=== PATIENT | male | born 1985 | race Caucasian/White ===

== ENCOUNTER 2017-10-06 08:31 | Emergency (ER) | payer OTHER ==
[2017-10-06 08:41] VITALS: RESP 18
[2017-10-06] MEDS ORDERED: METOCLOPRAMIDE 5 MG/ML 2 ML VIAL IVP STA (09:01)
[2017-10-06] MEDS ORDERED: SODIUM CHLORIDE 0.9% 500 ML IV STA (09:01)
[2017-10-06] MEDS ORDERED: KETOROLAC 30 MG/ML 1 ML VIAL IVP STA (09:01)
--- NOTE | 2017-10-06 09:03 | ED ---
General Adult HPI - General Chief complaint: Abdominal Pain Stated complaint: Blood in urine Time Seen by Provider: 10/06/17 08:50 Source: patient, RN notes reviewed Mode of arrival: ambulatory Limitations: no limitations - History of Present Illness Initial comments: Patient is a pleasant 32-year-old male presenting to the emergency Department with right lower back discomfort. Symptoms have been waxing and waning over the past couple of days. Discomfort is severe at times. Discomfort is currently 8/10. Patient has had some hematuria. Patient has had some episodes of nausea. No vomiting. No fevers. Symptoms are similar to previous kidney stone. Symptoms are not positional. - Related Data Previous Rx's Medication Instructions Recorded Hydrocodone/Acetaminophen [[place] 1 each PO Q4HR PRN #15 tab 10/06/17 5-325] Ketorolac [Toradol] 10 mg PO Q6HR PRN #15 tab 10/06/17 Metoclopramide HCl [Reglan] 10 mg PO Q6HR PRN #15 tablet 10/06/17 Tamsulosin [Flomax] 0.4 mg PO DAILY #14 cap 10/06/17 Allergies Allergy/AdvReac Type Severity Reaction Status Date / Time No Known Allergies Allergy Verified 10/06/17 08:58 Review of Systems ROS Statement: Those systems with pertinent positive or pertinent negative responses have been documented in the HPI. ROS Other: All systems not noted in ROS Statement are negative. Constitutional: Denies: fever Eyes: Denies: eye pain ENT: Denies: ear pain Respiratory: Denies: cough Cardiovascular: Denies: chest pain Endocrine: Denies: fatigue Gastrointestinal: Reports: nausea. Denies: abdominal pain, vomiting Genitourinary: Reports: hematuria Musculoskeletal: Reports: back pain Skin: Denies: rash Neurological: Denies: weakness Past Medical History Past Medical History: No Reported History Additional Past Medical History / Comment(s): kidney stone History of Any Multi-Drug Resistant Organisms: None Reported Past Surgical History: No Surgical Hx Reported Additional Past Surgical History / Comment(s): right hand ORIF Past Psychological History: No Psychological Hx Reported Smoking Status: Current every day smoker Past Alcohol Use History: None Reported Past Drug Use History: None Reported General Exam Limitations: no limitations General appearance: alert, in no apparent distress Head exam: Present: atraumatic Eye exam: Present: normal appearance, PERRL ENT exam: Present: normal oropharynx Neck exam: Present: normal inspection Respiratory exam: Present: normal lung sounds bilaterally Cardiovascular Exam: Present: regular rate, normal rhythm Expanded Peripheral pulses: 2+: Posterior Tibialis (R), Posterior Tibialis (L) GI/Abdominal exam: Present: soft. Absent: distended, tenderness, pulsatile mass Extremities exam: Present: normal inspection Back exam: Present: normal inspection. Absent: tenderness, CVA tenderness (R) Neurological exam: Present: alert Psychiatric exam: Present: normal affect, normal mood Skin exam: Present: normal color Course Vital Signs 10/06/17 08:39 Temperature 97.5 F L Pulse Rate 83 Respiratory 18 Rate Blood Pressure 140/73 O2 Sat by Pulse 100 Oximetry Medical Decision Making - Medical Decision Making Patient reexamined and improved. Patient states discomfort is tolerable at this time and would like to be discharged. Patient has probable kidney stone based on symptoms and history and hematuria. Patient updated on results. - Lab Data Result diagrams: 10/06/17 08:50 10/06/17 08:50 Lab Results 10/06/17 10/06/17 10/06/17 Range/Units 08:50 08:50 08:50 WBC 9.2 (3.8-10.6) k/uL RBC 5.47 (4.30-5.90) m/uL Hgb 16.3 (13.0-17.5) gm/dL Hct 51.7 (39.0-53.0) % MCV 94.6 (80.0-100.0) fL MCH 29.8 (25.0-35.0) pg MCHC 31.5 (31.0-37.0) g/dL RDW 14.7 (11.5-15.5) % Plt Count 272 (150-450) k/uL Neutrophils % 72 % Lymphocytes % 22 % Monocytes % 3 % Eosinophils % 1 % Basophils % 0 % Neutrophils # 6.6 (1.3-7.7) k/uL Lymphocytes # 2.1 (1.0-4.8) k/uL Monocytes # 0.3 (0-1.0) k/uL Eosinophils # 0.1 (0-0.7) k/uL Basophils # 0.0 (0-0.2) k/uL Sodium 140 (137-145) mmol/L Potassium 4.3 (3.5-5.1) mmol/L Chloride 104 (98-107) mmol/L Carbon Dioxide 28 (22-30) mmol/L Anion Gap 8 mmol/L BUN 9 (9-20) mg/dL Creatinine 0.97 (0.66-1.25) mg/dL Est GFR (MDRD) Af Amer >60 (>60 ml/min/1.73 sqM) Est GFR (MDRD) Non-Af >60 (>60 ml/min/1.73 sqM) Glucose 141 H (74-99) mg/dL Calcium 9.5 (8.4-10.2) mg/dL Total Bilirubin 0.7 (0.2-1.3) mg/dL AST 31 (17-59) U/L ALT 44 (21-72) U/L Alkaline Phosphatase 51 (38-126) U/L Total Protein 6.1 L (6.3-8.2) g/dL Albumin 4.0 (3.5-5.0) g/dL Amylase 53 (30-110) U/L Lipase 32 (23-300) U/L Urine Color Light Brown Urine Appearance Cloudy (Clear) Urine pH 8.0 (5.0-8.0) Ur Specific [place] 1.014 (1.001-1.035) Urine Protein Trace H (Negative) Urine Glucose (UA) Negative (Negative) Urine Ketones Negative (Negative) Urine Blood Large H (Negative) Urine Nitrite Negative (Negative) Urine Bilirubin Negative (Negative) Urine Urobilinogen <2.0 (<2.0) mg/dL Ur Leukocyte Esterase Negative (Negative) Urine RBC >182 H (0-5) /hpf Ur Squamous Epith Cells 1 (0-4) /hpf - Radiology Data Radiology results: image reviewed (Abdominal x-ray reveals no acute process) Disposition Clinical Impression: Ureterolithiasis Disposition: HOME SELF-CARE Condition: Stable Instructions: Kidney Stones (ED) Additional Instructions: Please follow-up with primary care physician in the next day or 2 for recheck. Return for fever, uncontrolled vomiting, uncontrolled pain, worsening or changing symptoms or other concerns. Prescriptions: Hydrocodone/Acetaminophen [[place] 5-325] 1 each PO Q4HR PRN #15 tab PRN Reason: Pain Ketorolac [Toradol] 10 mg PO Q6HR PRN #15 tab PRN Reason: Pain Metoclopramide HCl [Reglan] 10 mg PO Q6HR PRN #15 tablet PRN Reason: Nausea Tamsulosin [Flomax] 0.4 mg PO DAILY #14 cap Referrals: Robyn Dorsey MD [STAFF PHYSICIAN] - 1-2 days Hema Menjivar MD [STAFF PHYSICIAN] - 1-2 days Time of Disposition: 10:12
[2017-10-06 09:20] LABS: Basophils % (A) 0 %; Eosinophils # (A) 0.1 k/uL (0-0.7); Eosinophils % (A) 1 %; HCT 51.7 % (39.0-53.0); HGB 16.3 gm/dL (13.0-17.5); Lymphocytes # (A) 2.1 k/uL (1.0-4.8); Lymphocytes % (A) 22 %; MCH 29.8 pg (25.0-35.0); MCHC 31.5 g/dL (31.0-37.0); MCV 94.6 fL (80.0-100.0); Mean Platelet Volume 7.3; Monocytes # (A) 0.3 k/uL (0-1.0); Monocytes % (A) 3 %; Neutrophils # (A) 6.6 k/uL (1.3-7.7); Neutrophils % (A) 72 %; Platelet Count 272 k/uL (150-450); RBC 5.47 m/uL (4.30-5.90); RDW 14.7 % (11.5-15.5); WBC 9.2 k/uL (3.8-10.6)
[2017-10-06 09:25] LABS: ALT 44 U/L (21-72); AST 31 U/L (17-59); Alkaline Phosphatase 51 U/L (38-126); Amylase 53 U/L (30-110); Anion Gap 8 mmol/L; Blood Urea Nitrogen 9 mg/dL (9-20); Calcium 9.5 mg/dL (8.4-10.2); Carbon Dioxide 28 mmol/L (22-30); Chloride 104 mmol/L (98-107); Glucose 141 mg/dL (74-99); Lipase 32 U/L (23-300); Potassium 4.3 mmol/L (3.5-5.1); Sodium 140 mmol/L (137-145); Total Bilirubin 0.7 mg/dL (0.2-1.3); Total Protein 6.1 g/dL (6.3-8.2)
[2017-10-06 09:26] LABS: Appearance,Urine Cloudy (Clear); Bilirubin,Urine Negative (Negative); Blood,Urine Large (Negative); Color,Urine Light Brown; Glucose,Urine (UA) Negative (Negative); Ketones,Urine Negative (Negative); Leukocyte Esterase,Urine Negative (Negative); Nitrite,Urine Negative (Negative); Protein,Urine Trace (Negative); RBC,Urine >182 /hpf (0-5); Specific Gravity,Urine 1.014 (1.001-1.035); Squamous Epithelial Cell,Urine 1 /hpf (0-4); Urobilinogen,Urine <2.0 mg/dL (<2.0)
--- NOTE | 2017-10-06 09:31 | XR ---
EXAMINATION TYPE: XR KUB , 2 VIEWS DATE OF EXAM ORDERED: 10/06/2017 HISTORY: abdominal pain. COMPARISON: None. FINDINGS: The lung bases are clear. Within the abdomen, the abdominal gas pattern is normal. There is no evidence of obstruction or free air. No unusual calcifications are seen. IMPRESSION: NORMAL ABDOMEN.
[2017-10-06 10:33] VITALS: BP 121/65; PULSE 84; TEMP 97.9
== END 2017-10-06 10:31 | disposition home or self-care (01) ==
LOC: EC 08:31
DX: N20.1 Calculus of ureter (principal); F17.200 Nicotine dependence, unspecified, uncomplicated; Z87.442 Personal history of urinary calculi
CPT/HCPCS: 36415; 80053; 82150; 83690; 85025; 81001; 74018; 99284; 96374; 96375; 96361; J2765; J1885

== ENCOUNTER 2017-11-25 10:20 | Emergency (ER) | payer OTHER ==
[2017-11-25] MEDS ORDERED: MORPHINE SULFATE 4 MG/ML SYRINGE IM STA (11:27)
[2017-11-25] MEDS ORDERED: ONDANSETRON ODT 4 MG TAB PO STA (11:27)
[2017-11-25] MEDS ORDERED: KETOROLAC 60 MG/2 ML VIAL IM STA (11:27)
[2017-11-25] MEDS ORDERED: MORPHINE SULFATE/PF 10MG/10ML VL IM STA (11:34)
--- NOTE | 2017-11-25 11:37 | ED ---
General Adult HPI - General Chief complaint: Abdominal Pain Stated complaint: Blood in urine Time Seen by Provider: 11/25/17 11:19 Source: patient, RN notes reviewed Mode of arrival: ambulatory Limitations: no limitations - History of Present Illness Initial comments: Patient 32-year-old male with significant past medical history for kidney stones , presenting today with a chief complaint of right-sided flank pain over the last 3 days. He does admit that he seen blood in his urine. Does admit to pain wrapping around to the right side of the abdomen. He states is consistent with kidney stones that is had in the past. He does admit to some nausea no vomiting. Denies any other complaints or symptoms at this time. Patient denies any recent fever, chills, shortness of breath, chest pain, numbness or tingling , dysuria or hematuria, constipation or diarrhea, headaches or visual changes, or any other complaints. - Related Data Home Medications Medication Instructions Recorded Confirmed Ibuprofen [Motrin] 800 mg PO ONCE PRN 11/25/17 11/25/17 Previous Rx's Medication Instructions Recorded Hydrocodone/Acetaminophen [[place] 1 each PO Q6HR PRN #12 tab 11/25/17 5-325] Ibuprofen [Motrin] 600 mg PO Q6HR PRN #40 day 11/25/17 Tamsulosin [Flomax] 0.4 mg PO DAILY #10 cap 11/25/17 Allergies Allergy/AdvReac Type Severity Reaction Status Date / Time No Known Allergies Allergy Verified 11/25/17 11:27 Review of Systems ROS Statement: Those systems with pertinent positive or pertinent negative responses have been documented in the HPI. ROS Other: All systems not noted in ROS Statement are negative. Past Medical History Past Medical History: No Reported History Additional Past Medical History / Comment(s): kidney stone History of Any Multi-Drug Resistant Organisms: None Reported Past Surgical History: No Surgical Hx Reported Additional Past Surgical History / Comment(s): right hand ORIF Past Psychological History: No Psychological Hx Reported Smoking Status: Current every day smoker Past Alcohol Use History: None Reported Past Drug Use History: None Reported General Exam - General Exam Comments Initial Comments: General: The patient is awake and alert, in no distress, and does not appear acutely ill. Eye: Pupils are equal, round and reactive to light, extra-ocular movements are intact. No nystagmus. There is normal conjunctiva bilaterally. No signs of icterus. Ears, nose, mouth and throat: There are moist mucous membranes and no oral lesions. Neck: The neck is supple, there is no tenderness or JVD. Cardiovascular: There is a regular rate and rhythm. No murmur, rub or gallop is appreciated. Respiratory: Lungs are clear to auscultation, respirations are non-labored, breath sounds are equal. No wheezes, stridor, rales, or rhonchi. Gastrointestinal: Soft, non-distended, non-tender abdomen without masses or organomegaly noted. There is no rebound or guarding present. No CVA tenderness. Bowel sounds are unremarkable. Musculoskeletal: Normal ROM, no tenderness. Strength 5/5. Sensation intact. Pulses equal bilaterally 2+. Neurological: A&O x 3. CN II-XII intact, There are no obvious motor or sensory deficits. Coordination appears grossly intact. Speech is normal. Skin: Skin is warm and dry and no rashes or lesions are noted. Psychiatric: Cooperative, appropriate mood & affect, normal judgment. Limitations: no limitations Course Vital Signs 11/25/17 10:49 Temperature 97.9 F Pulse Rate 95 Respiratory 18 Rate Blood Pressure 137/83 O2 Sat by Pulse 99 Oximetry Medical Decision Making - Medical Decision Making X-ray reviewed negative. Patient's urinalysis shows large amount of blood. No sign of infection at this time. Culture pending. Options were discussed with patient about further lab evaluation. He states feels similar to kidney stones that is had in the past has declined. Patient feeling better after medications given here in the emergency room. Will be discharged home continued on pain medication, Flomax advised follow-up urology. - Lab Data Lab Results 11/25/17 Range/Units 11:20 Urine Color Red Urine Appearance Clear (Clear) Urine pH 5.5 (5.0-8.0) Ur Specific [place] 1.015 (1.001-1.035) Urine Protein 1+ H (Negative) Urine Glucose (UA) Negative (Negative) Urine Ketones Negative (Negative) Urine Blood Large H (Negative) Urine Nitrite Negative (Negative) Urine Bilirubin Negative (Negative) Urine Urobilinogen <2.0 (<2.0) mg/dL Ur Leukocyte Esterase Small H (Negative) Urine RBC >182 H (0-5) /hpf Urine Bacteria Rare H (None) /hpf Urine Mucus Few H (None) /hpf Disposition Clinical Impression: Kidney stone Disposition: HOME SELF-CARE Condition: Good Instructions: Kidney Stones (ED) Additional Instructions: Please use medication as discussed. Please follow-up with urology/family doctor in the next 2 days of symptoms have not improved. Please return to emergency room if the symptoms increase or worsen or for any other concerns. Prescriptions: Hydrocodone/Acetaminophen [[place] 5-325] 1 each PO Q6HR PRN #12 tab PRN Reason: Pain Ibuprofen [Motrin] 600 mg PO Q6HR PRN #40 day PRN Reason: Pain Tamsulosin [Flomax] 0.4 mg PO DAILY #10 cap Referrals: None,Stated [Primary Care Provider] - 1-2 days Shravan Armenta MD [STAFF PHYSICIAN] - 1-2 days Time of Disposition: 12:21
[2017-11-25 11:49] LABS: Appearance,Urine Clear (Clear); Bacteria,Urine Rare /hpf; Bilirubin,Urine Negative (Negative); Blood,Urine Large (Negative); Color,Urine Red; Glucose,Urine (UA) Negative (Negative); Ketones,Urine Negative (Negative); Leukocyte Esterase,Urine Small (Negative); Mucus,Urine Few /hpf; Nitrite,Urine Negative (Negative); PH, Urine 5.5 (5.0-8.0); Protein,Urine 1+ (Negative); RBC,Urine >182 /hpf (0-5); Specific Gravity,Urine 1.015 (1.001-1.035); Urobilinogen,Urine <2.0 mg/dL (<2.0)
--- NOTE | 2017-11-25 11:58 | XR ---
EXAMINATION TYPE: XR KUB DATE OF EXAM: 11/25/2017 COMPARISON: 10/06/2017 HISTORY: Abdominal pain TECHNIQUE: One view abdominal series FINDINGS: The osseous structures are intact. The bowel gas pattern is nonspecific. Lung bases are clear. Curv ature the spine may be positional. Correlate clinically. There is a nonspherical morphology of the ri ght femoral head which could be congenital or related to femoral acetabular impingement. Correlate cl inically. IMPRESSION: 1. Nonspecific abdomen.
[2017-11-25 12:37] VITALS: BP 139/87; PULSE 75; RESP 16; TEMP 98.4
== END 2017-11-25 12:35 | disposition home or self-care (01) ==
LOC: EC 10:20
DX: N20.0 Calculus of kidney (principal); F17.200 Nicotine dependence, unspecified, uncomplicated
CPT/HCPCS: 81001; 87086; 74018; 99284; 96372 ×2; J1885; J2270

== ENCOUNTER 2018-01-25 08:29 | Emergency (ER) | payer OTHER ==
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
--- NOTE | 2018-01-25 09:19 | XR ---
2 view neck HISTORY: Pain, feeling of object in throat 2 views of the neck. No radiopaque foreign body evident. Lung apices as visualized are normal. Epiglottis shows a normal a ppearance in profile. Airway is patent. Cervical vertebral bodies show normal alignment and bone mine ralization. Disc spaces and prevertebral soft tissues are normal. Oval soft tissue density superimpos ed over the pharyngeal soft tissues on the lateral exam thought likely due to patient's earlobe. IMPRESSION: No radiopaque foreign body. Additional findings above.
[2018-01-25] MEDS ORDERED: AMOXICILLIN 500MG STARTER PACK 3 CAP BTL PO STA (09:32)
[2018-01-25 09:45] VITALS: BP 132/88; PULSE 92; RESP 16; TEMP 98.7
== END 2018-01-25 09:45 | disposition home or self-care (01) ==
LOC: EC 08:29
DX: J02.9 Acute pharyngitis, unspecified (principal); F17.200 Nicotine dependence, unspecified, uncomplicated
CPT/HCPCS: 70360; 87081; 87430; 99284

== ENCOUNTER 2019-04-21 22:45 | Emergency (ER) | payer OTHER ==
[2019-04-21] MEDS ORDERED: SODIUM CHLORIDE 0.9% 1,000 ML IV STA (23:05)
[2019-04-21] MEDS ORDERED: ONDANSETRON 4 MG/2 ML VIAL IVP STA (23:05)
[2019-04-21 23:41] LABS: Basophils # (A) 0.1 k/uL (0-0.2); Basophils % (A) 1 %; Eosinophils # (A) 0.3 k/uL (0-0.7); Eosinophils % (A) 3 %; HGB 15.4 gm/dL (13.0-17.5); Lymphocytes # (A) 2.9 k/uL (1.0-4.8); Lymphocytes % (A) 38 %; MCH 30.2 pg (25.0-35.0); MCHC 32.8 g/dL (31.0-37.0); Mean Platelet Volume 7.4; Monocytes # (A) 0.3 k/uL (0-1.0); Monocytes % (A) 4 %; Neutrophils % (A) 52 %; Platelet Count 317 k/uL (150-450); RBC 5.11 m/uL (4.30-5.90); RDW 14.8 % (11.5-15.5); WBC 7.7 k/uL (3.8-10.6)
[2019-04-21 23:48] LABS: ALT 280 U/L (21-72); AST 86 U/L (17-59); African American GFR (CKD) >90 (>60 ml/min/1.73 sqM); Albumin 4.3 g/dL (3.5-5.0); Alkaline Phosphatase 80 U/L (38-126); Amylase 53 U/L (30-110); Anion Gap 8 mmol/L; Blood Urea Nitrogen 21 mg/dL (9-20); Calcium 9.3 mg/dL (8.4-10.2); Carbon Dioxide 30 mmol/L (22-30); Chloride 99 mmol/L (98-107); Glucose 128 mg/dL (74-99); Potassium 3.8 mmol/L (3.5-5.1); Sodium 137 mmol/L (137-145); Total Bilirubin 3.5 mg/dL (0.2-1.3); Total Protein 7.3 g/dL (6.3-8.2)
--- NOTE | 2019-04-22 00:09 | ED ---
General Adult HPI - General Chief complaint: Recheck/Abnormal Lab/Rx Stated complaint: Weakness Time Seen by Provider: 04/21/19 22:55 Source: patient Mode of arrival: ambulatory Limitations: no limitations - History of Present Illness Initial comments: Patient is a 33-year-old male presenting to emergency Department with complaints of yellow skin 2 weeks ago. Patient states he was incarcerated and during his stay he did started developing yellow skin. Patient states he was released a week ago and that has since improved. Patient states he has not been able to eat and having nausea. Patient denies any abdominal pain. Patient does admit to being an IV drug user. His last use was this morning. Patient denies taking any other medications. Patient Denies fever, chills, vomiting, diarrhea. Patient has no other complaints at this time. - Related Data Home Medications Medication Instructions Recorded Confirmed Ibuprofen [Motrin] 800 mg PO ONCE PRN 11/25/17 11/25/17 Previous Rx's Medication Instructions Recorded Hydrocodone/Acetaminophen [[place] 1 each PO Q6HR PRN #12 tab 11/25/17 5-325] Ibuprofen [Motrin] 600 mg PO Q6HR PRN #40 day 11/25/17 Tamsulosin [Flomax] 0.4 mg PO DAILY #10 cap 11/25/17 Amoxicillin 500 mg PO BID #20 capsule 01/25/18 Allergies Allergy/AdvReac Type Severity Reaction Status Date / Time No Known Allergies Allergy Verified 04/21/19 22:52 Review of Systems ROS Statement: Those systems with pertinent positive or pertinent negative responses have been documented in the HPI. ROS Other: All systems not noted in ROS Statement are negative. Past Medical History Past Medical History: No Reported History Additional Past Medical History / Comment(s): kidney stone History of Any Multi-Drug Resistant Organisms: None Reported Past Surgical History: Orthopedic Surgery Additional Past Surgical History / Comment(s): right hand ORIF Past Psychological History: No Psychological Hx Reported Smoking Status: Current every day smoker Past Alcohol Use History: None Reported Past Drug Use History: Heroin, Marijuana, Opiates General Exam - General Exam Comments Initial Comments: GENERAL: Well-appearing, well-nourished and in no acute distress. Patient appears anxious. HEAD: Atraumatic, normocephalic. EYES: Pupils equal round and reactive to light, extraocular movements intact, sclera anicteric, conjunctiva are normal. ENT: TMs normal, nares patent, oropharynx clear without exudates. Moist mucous membranes. NECK: Normal range of motion, supple without lymphadenopathy or JVD. LUNGS: Breath sounds clear to auscultation bilaterally and equal. No wheezes rales or rhonchi. HEART: Tachycardic rate and rhythm without murmurs, rubs or gallops. ABDOMEN: Soft, nontender, normoactive bowel sounds. No guarding, no rebound. No masses appreciated. : Deferred EXTREMITIES: Normal range of motion, no pitting or edema. No clubbing or cyanosis. NEUROLOGICAL: Cranial nerves II through XII grossly intact. Normal speech, normal gait. PSYCH: Normal mood, normal affect. SKIN: Warm, Dry, normal turgor, no rashes. Patient has many healing scabs throughout his entire body. Limitations: no limitations Course Vital Signs 04/21/19 22:49 Temperature 97.8 F Pulse Rate 127 H Respiratory 30 H Rate Blood Pressure 137/83 O2 Sat by Pulse 99 Oximetry Medical Decision Making - Medical Decision Making Patient is a 33-year-old male presenting with complaints of yellow skin 2 weeks ago as well as nausea. Patient was incarcerated and during that time started having some yellow skin. Patient states that since cleared up but he still was feeling nauseous and has no appetite. Patient admits to being a IV drug user with last use being this morning. Poni arrival, patient is afebrile, pulse 127, respiratory 30 blood pressure 137/83. On exam patient appears very anxious. Patient has no abdominal pain. Patient has many healing skin scabs. CBC is within normal limits. CMP shows total bilirubin is 3.5, AST is 86, ALTs to 80. Lactic acid 1.0. Amylase and lipase are within normal limits. Acute hepatitis panel is pending at this time. UA was also pending. Patient will be referred to Dr. Burgos for follow-up. Patient is in agreement with this plan and is ready to be discharged. Patient is stable for discharge at this time. Discussed options with patient for treatment of opioid addiction. Return parameters were discussed with the patient he verbalizes understanding. Case discussed with Dr. Silverio. - Lab Data Result diagrams: 04/21/19 23:28 04/21/19 23:28 Lab Results 04/21/19 04/21/19 04/21/19 Range/Units 23:28 23:28 23:28 WBC 7.7 (3.8-10.6) k/uL RBC 5.11 (4.30-5.90) m/uL Hgb 15.4 (13.0-17.5) gm/dL Hct 47.0 (39.0-53.0) % MCV 92.0 (80.0-100.0) fL MCH 30.2 (25.0-35.0) pg MCHC 32.8 (31.0-37.0) g/dL RDW 14.8 (11.5-15.5) % Plt Count 317 (150-450) k/uL Neutrophils % 52 % Lymphocytes % 38 % Monocytes % 4 % Eosinophils % 3 % Basophils % 1 % Neutrophils # 4.0 (1.3-7.7) k/uL Lymphocytes # 2.9 (1.0-4.8) k/uL Monocytes # 0.3 (0-1.0) k/uL Eosinophils # 0.3 (0-0.7) k/uL Basophils # 0.1 (0-0.2) k/uL Sodium 137 (137-145) mmol/L Potassium 3.8 (3.5-5.1) mmol/L Chloride 99 (98-107) mmol/L Carbon Dioxide 30 (22-30) mmol/L Anion Gap 8 mmol/L BUN 21 H (9-20) mg/dL Creatinine 0.69 (0.66-1.25) mg/dL Est GFR (CKD-EPI)AfAm >90 (>60 ml/min/1.73 sqM) Est GFR (CKD-EPI)NonAf >90 (>60 ml/min/1.73 sqM) Glucose 128 H (74-99) mg/dL Plasma Lactic Acid Rad 1.0 (0.7-2.0) mmol/L Calcium 9.3 (8.4-10.2) mg/dL Total Bilirubin 3.5 H (0.2-1.3) mg/dL AST 86 H (17-59) U/L ALT 280 H (21-72) U/L Alkaline Phosphatase 80 (38-126) U/L Total Protein 7.3 (6.3-8.2) g/dL Albumin 4.3 (3.5-5.0) g/dL Amylase 53 (30-110) U/L Lipase 54 (23-300) U/L Disposition Clinical Impression: Nausea, Elevated liver enzymes Disposition: HOME SELF-CARE Condition: Stable Instructions (If sedation given, give patient instructions): Acute Nausea and Vomiting (ED) Additional Instructions: Please return to the Emergency Department if symptoms worsen or any other concerns. Follow-up with Dr. Burgos as discussed. Is patient prescribed a controlled substance at d/c from ED?: No Referrals: None,Stated [Primary Care Provider] - 1-2 days Domenica Burgos MD [REFERRING] - 1-2 days
[2019-04-22 00:30] LABS: Appearance,Urine Clear (Clear); Bilirubin,Urine 1+ (Negative); Blood,Urine Negative (Negative); Color,Urine Dark Yellow; Glucose,Urine (UA) Negative (Negative); Ketones,Urine Negative (Negative); Leukocyte Esterase,Urine Negative (Negative); Nitrite,Urine Negative (Negative); PH, Urine 5.5 (5.0-8.0); Protein,Urine Trace (Negative); Specific Gravity,Urine 1.031 (1.001-1.035)
[2019-04-22 00:42] LABS: Amphetamine Screen,Urine Detected (NotDetected); Barbiturate Screen,Urine Not Detected (NotDetected); Benzodiazepines Screen,Urine Not Detected (NotDetected); Cocaine Screen,Urine Not Detected (NotDetected); Methadone Screen, Urine Not Detected (NotDetected); Opiate Screen,Urine Not Detected (NotDetected); Oxycodone Screen, Urine Not Detected (NotDetected); Phencyclidine Screen,Urine Not Detected (NotDetected); Tricyclic Antidepressant,Urine Not Detected (NotDetected); Urn Cannabinoid Scrn Detected (NotDetected)
[2019-04-22 00:44] VITALS: BP 138/91; PULSE 98; RESP 18; TEMP 98.6
== END 2019-04-22 00:42 | disposition home or self-care (01) ==
LOC: EC 22:45
DX: R11.0 Nausea (principal); R74.8 Abnormal levels of other serum enzymes; R00.0 Tachycardia, unspecified; F17.200 Nicotine dependence, unspecified, uncomplicated
CPT/HCPCS: 36415 ×2; 80053; 80074; 82150; 83605; 83690; 85025; 81003; 80306; 99284; 96374; 96361; J2405

== ENCOUNTER 2021-03-16 00:23 | Emergency (ER) | payer OTHER ==
[2021-03-16 00:32] VITALS: BP 143/90; PULSE 79; RESP 18; TEMP 98.4
--- NOTE | 2021-03-16 01:22 | ED ---
Recheck HPI - General Chief Complaint: Skin/Abscess/Foreign Body Stated Complaint: Abscess Time Seen by Provider: 03/16/21 00:31 Source: patient, RN notes reviewed, old records reviewed Mode of arrival: ambulatory Limitations: no limitations - History of Present Illness Initial Comments: This is a 35-year-old male who appears to have history of drug abuse coming in for evaluation. Patient very agitated on arrival to ER. Patient has significant swelling of his nose states his been going on for 2 days. Patient refuses of provide accurate history but as a transfer by his own vehicle to our hospital from outside facility for evaluation and treatment, ENT consultation. Patient is very agitated upon arrival to the hospital MD Complaint: wound re-check -: days(s) Returns Today for: persistent/worsening pain related to initial visit Symptoms Since Prior Visit: worsening pain, worsening redness, fever Context: planned re-check Associated Symptoms: chills Treatments Prior to Arrival: other (none) - Related Data Home Medications Medication Instructions Recorded Confirmed Ibuprofen [Motrin] 800 mg PO ONCE PRN 11/25/17 11/25/17 Previous Rx's Medication Instructions Recorded Hydrocodone/Acetaminophen [[place] 1 each PO Q6HR PRN #12 tab 11/25/17 5-325] Ibuprofen [Motrin] 600 mg PO Q6HR PRN #40 day 11/25/17 Tamsulosin [Flomax] 0.4 mg PO DAILY #10 cap 11/25/17 Amoxicillin 500 mg PO BID #20 capsule 01/25/18 Allergies Allergy/AdvReac Type Severity Reaction Status Date / Time No Known Allergies Allergy Verified 03/16/21 00:32 Review of Systems ROS Statement: Those systems with pertinent positive or pertinent negative responses have been documented in the HPI. ROS Other: All systems not noted in ROS Statement are negative. Past Medical History Past Medical History: No Reported History Additional Past Medical History / Comment(s): kidney stone History of Any Multi-Drug Resistant Organisms: None Reported Past Surgical History: Orthopedic Surgery Additional Past Surgical History / Comment(s): right hand ORIF Past Psychological History: No Psychological Hx Reported Smoking Status: Current every day smoker Past Alcohol Use History: None Reported Past Drug Use History: Heroin, Marijuana, Opiates General Exam Limitations: no limitations General appearance: alert, in no apparent distress Head exam: Present: atraumatic, normocephalic, normal inspection Eye exam: Present: normal appearance, PERRL, EOMI. Absent: scleral icterus, conjunctival injection, periorbital swelling ENT exam: Present: normal exam, mucous membranes moist. Absent: other (Significant nasal septal abscess of nose) Neck exam: Present: normal inspection. Absent: tenderness, meningismus, lymphadenopathy Respiratory exam: Present: normal lung sounds bilaterally. Absent: respiratory distress, wheezes, rales, rhonchi, stridor Cardiovascular Exam: Present: regular rate, normal rhythm, normal heart sounds. Absent: systolic murmur, diastolic murmur, rubs, gallop, clicks GI/Abdominal exam: Present: soft, normal bowel sounds. Absent: distended, tenderness, guarding, rebound, rigid Extremities exam: Present: normal inspection, full ROM, normal capillary refill. Absent: tenderness, pedal edema, joint swelling, calf tenderness Back exam: Present: normal inspection Neurological exam: Present: alert, oriented X3, CN II-XII intact Psychiatric exam: Present: normal affect, normal mood Skin exam: Present: warm, dry, intact, normal color. Absent: rash Course Vital Signs 03/16/21 00:30 Temperature 98.4 F Pulse Rate 79 Respiratory 18 Rate Blood Pressure 143/90 O2 Sat by Pulse 100 Oximetry - Reevaluation(s) Reevaluation #1: 03/16/21 01:14 Medical record is reviewed Patient's transfer paperwork is reviewed Reevaluation #2: 03/16/21 01:19 The patient patient refusing to stay in hospital states he's been hospital for way to long today and he is informed to possibility of losing his nose patient doesn't care Reevaluation #3: 03/16/21 01:19 Patient left without discharge or AMA instructions Medical Decision Making - Medical Decision Making 35 male elopement. Patient presented as a transfer under his own care, patient did travel himself to this hospital for evaluation and treatment of a nasal abscess. Patient is deciding that he wants to leave and go home and states she may come back in the morning. _Patient does appear to be seen being to go do drugs and does appear to have drug habit Patient informed of severity of illness, need to stay in the hospital for further treatment and evaluation. Patient is of sound mind and walks out of room Disposition Clinical Impression: Nasal abscess, Nasal septal abscess Narrative: ELOPED Disposition: Left Against Medical Advice Condition: Serious Is patient prescribed a controlled substance at d/c from ED?: No Referrals: None,Stated [Primary Care Provider] - 1-2 days
== END 2021-03-16 01:35 | disposition left against medical advice (07) ==
LOC: EC 00:23
DX: J32.9 Chronic sinusitis, unspecified (principal); F17.200 Nicotine dependence, unspecified, uncomplicated; F11.90 Opioid use, unspecified, uncomplicated; Z79.1 Long term (current) use of non-steroidal anti-inflammatories (NSAID); Z79.899 Other long term (current) drug therapy
CPT/HCPCS: 99283

== ENCOUNTER 2021-03-16 11:18 | Emergency (ER) | payer OTHER ==
[2021-03-16 11:29] VITALS: BP 133/86; PULSE 96; RESP 16; TEMP 98.2
[2021-03-16] MEDS ORDERED: HYDROcodone/APAP 5-325MG 1 EACH TAB PO STA (13:05)
--- NOTE | 2021-03-16 13:11 | ED ---
ENT HPI - General Chief complaint: ENT Stated complaint: Revisit/Nasal Issues Source: patient, RN notes reviewed, old records reviewed Mode of arrival: ambulatory Limitations: no limitations - History of Present Illness Initial comments: 35-year-old white male patient, alert and oriented 4, presents to the emergency room after being referred from [facility] yesterday at 10 PM. Patient states that he went to [facility] for drainage from his right nostril and pain. Patient had a white count of 18,008 CT that showed a 4 x 2 cm oval-shaped fluid density mass in the anterior nasopharynx likely an abscess with mild ethmoid sinusitis. He was sent for evaluation of an abscess. Patient was given a dose of vancomycin in the emergency room and blood cultures were obtained. Patient did see Dr. Silverio however the patient was tired and states that he didn't like the doctor so he left. Patient denies fevers however paperwork from [facility] states that the patient arrived febrile with a temperature 100.6. Patient states that he has been clean from IV heroin for 2 days. He denies any cocaine use and denies any other health problems. He states that his only surgical history was a boxer action repair several years ago. complaint: other (Right nostril abscess) -: days(s) (3) Location: nose (Right side) Severity scale (1-10): 7 Quality: sharp, constant Consistency: constant Improves with: none Worsens with: other (Palpation) Associated Symptoms: other (Right-sided facial pain) - Related Data Previous Rx's Medication Instructions Recorded Sulfamethox-Tmp 800-160Mg [Bactrim 1 each PO Q12HR 7 Days #14 tab 03/16/21 Ds] Allergies Allergy/AdvReac Type Severity Reaction Status Date / Time No Known Allergies Allergy Verified 03/16/21 12:51 Review of Systems ROS Statement: Those systems with pertinent positive or pertinent negative responses have been documented in the HPI. ROS Other: All systems not noted in ROS Statement are negative. Past Medical History Past Medical History: No Reported History Additional Past Medical History / Comment(s): kidney stone History of Any Multi-Drug Resistant Organisms: None Reported Past Surgical History: Orthopedic Surgery Additional Past Surgical History / Comment(s): right hand ORIF Past Psychological History: No Psychological Hx Reported Smoking Status: Current every day smoker Past Alcohol Use History: None Reported Past Drug Use History: Heroin, Marijuana, Opiates General Exam Limitations: no limitations General appearance: alert, in no apparent distress Head exam: Present: atraumatic, normocephalic, normal inspection Eye exam: Present: normal appearance, PERRL, EOMI. Absent: scleral icterus, conjunctival injection, nystagmus, periorbital swelling Pupils: Present: normal accommodation ENT exam: Present: normal exam, normal oropharynx, mucous membranes moist, TM's normal bilaterally, other (Right nare swollen with a creamy white exudate; right ethmoid sinus tenderness to palpation) Neck exam: Present: normal inspection, full ROM. Absent: tenderness, meningismus, lymphadenopathy, thyromegaly Respiratory exam: Present: normal lung sounds bilaterally. Absent: respiratory distress, wheezes, rales, rhonchi, stridor, chest wall tenderness, accessory muscle use, decreased breath sounds, prolonged expiratory Cardiovascular Exam: Present: regular rate, normal rhythm, normal heart sounds. Absent: systolic murmur, diastolic murmur, rubs, gallop, clicks GI/Abdominal exam: Present: soft, normal bowel sounds. Absent: distended, tenderness, guarding, rebound, rigid Extremities exam: Present: normal inspection, full ROM, normal capillary refill. Absent: tenderness, pedal edema, joint swelling, calf tenderness Back exam: Present: normal inspection, full ROM. Absent: tenderness, CVA tenderness (R), CVA tenderness (L), muscle spasm, paraspinal tenderness, ve rtebral tenderness, rash noted Neurological exam: Present: alert, oriented X3, CN II-XII intact Psychiatric exam: Present: normal affect, normal mood Skin exam: Present: warm, dry, intact, normal color. Absent: rash, cyanosis, diaphoretic, erythema, petechiae, pallor, mottled Course Vital Signs 03/16/21 11:25 Temperature 98.2 F Pulse Rate 96 Respiratory 16 Rate Blood Pressure 133/86 O2 Sat by Pulse 100 Oximetry Medical Decision Making - Medical Decision Making 35-year-old white male was seen at [facility] yesterday and diagnosed with a nasal abscess. Patient states at that time the abscess was not draining. It is now draining and the swelling has decreased. Patient is afebrile in the emergency room at 98.2 and has not had any medication since yesterday. Patient denies any headache, no spinal tenderness, no lymphadenopathy. He also denies any abdominal pain and nausea and vomiting. He states that he has not had IV heroin in the last 3 days. He denies any medications on a daily basis. Patient was given 1 g of vancomycin at [facility] yesterday and blood cultures were drawn. He will be prescribed Bactrim twice a day for the next 7 days and given an ENT referral with strict instructions to return to the emergency room with increased pain or fevers. Case discussed with Dr. Mckay who was agreeable to this plan of care. Disposition Clinical Impression: Nasal abscess Disposition: HOME SELF-CARE Condition: Fair Instructions (If sedation given, give patient instructions): Abscess (ED) Additional Instructions: Return to the emergency room with any increased pain, fever, or worsening symptoms. Warm compresses to help encourage drainage. Take the Bactrim twice a day as prescribed. Follow-up with ENT Dr. Bang within the next 7 days. Prescriptions: Sulfamethox-Tmp 800-160Mg [Bactrim Ds] 1 each PO Q12HR 7 Days #14 tab Is patient prescribed a controlled substance at d/c from ED?: No Referrals: None,Stated [Primary Care Provider] - 1-2 days Caleb Bang MD [STAFF PHYSICIAN] - 1-2 days Time of Disposition: 13:19
== END 2021-03-16 13:37 | disposition home or self-care (01) ==
LOC: EC 11:18
DX: J32.9 Chronic sinusitis, unspecified (principal); F17.200 Nicotine dependence, unspecified, uncomplicated; F12.90 Cannabis use, unspecified, uncomplicated; F11.90 Opioid use, unspecified, uncomplicated
CPT/HCPCS: 99282

== ENCOUNTER 2021-03-18 12:29 | Inpatient (IN) | payer OTHER ==
[2021-03-18] MEDS ORDERED: SODIUM CHLORIDE 0.9% 1,000 ML IV STA (12:53)
[2021-03-18] MEDS ORDERED: cefTRIAXone IN SWFI 1,000 MG/10 ML SYRINGE IVP STA (12:53)
--- NOTE | 2021-03-18 12:59 | ED ---
Skin/Abscess/FB HPI - General Chief complaint: Skin/Abscess/Foreign Body Stated complaint: Nose abscess revisit Time Seen by Provider: 03/18/21 12:43 Source: patient Mode of arrival: ambulatory Limitations: no limitations - History of Present Illness Initial comments: 35-year-old male presents to the emergency room with a chief complaint of a nose abscess. Patient reports this started several days ago prior to arrival. Patient states about 3 days ago he went to [facility] where he was diagnosed with a nasal abscess and was transferred to this facility for further medical management an ENT consult. Patient reports he was not satisfied with the care surgery decided to leave. States that the following day he came back again and was discharged with Bactrim. Patient reports he has taken about 4 doses of the Bactrim with no significant improvement in symptoms. Now he is also developed chills and fevers. States a fever of 101.6 and he took Tylenol prior to ED arrival. Reports she is not able to breathe out of his nos e. Denies any discharge from his nose. He does have history of IV drug use. - Related Data Previous Rx's Medication Instructions Recorded Sulfamethox-Tmp 800-160Mg [Bactrim 1 each PO Q12HR 7 Days #14 tab 03/16/21 Ds] Allergies Allergy/AdvReac Type Severity Reaction Status Date / Time No Known Allergies Allergy Verified 03/18/21 12:35 Review of Systems ROS Statement: Those systems with pertinent positive or pertinent negative responses have been documented in the HPI. ROS Other: All systems not noted in ROS Statement are negative. Past Medical History Past Medical History: No Reported History Additional Past Medical History / Comment(s): kidney stone History of Any Multi-Drug Resistant Organisms: None Reported Past Surgical History: Orthopedic Surgery Additional Past Surgical History / Comment(s): right hand ORIF Past Psychological History: No Psychological Hx Reported Smoking Status: Current every day smoker Past Alcohol Use History: None Reported Past Drug Use History: Heroin, Marijuana, Opiates General Exam Limitations: no limitations General appearance: alert, in no apparent distress Head exam: Present: atraumatic, normocephalic, normal inspection Eye exam: Present: normal appearance, PERRL, EOMI Pupils: Present: normal accommodation ENT exam: Present: normal exam, mucous membranes moist, TM's normal bilaterally, normal external ear exam. Absent: normal oropharynx (Slightly large nose but no overlying cellulitic skin changes. It appears like a septal hematoma when evaluating inside the nares.) Neck exam: Present: normal inspection, full ROM. Absent: tenderness, lymphadenopathy Respiratory exam: Present: normal lung sounds bilaterally. Absent: respiratory distress, wheezes, rales Cardiovascular Exam: Present: regular rate, normal rhythm, normal heart sounds. Absent: systolic murmur Extremities exam: Present: normal inspection, full ROM, normal capillary refill Back exam: Present: normal inspection, full ROM Neurological exam: Present: alert, oriented X3 Psychiatric exam: Present: normal affect, normal mood Skin exam: Present: warm, dry, intact, normal color Course Vital Signs 03/18/21 03/18/21 03/18/21 12:30 12:45 13:00 Temperature 97.8 F 99.9 F H 99.0 F Pulse Rate 121 H 99 98 Respiratory 20 18 18 Rate Blood Pressure 128/80 117/68 134/87 O2 Sat by Pulse 99 96 97 Oximetry 03/18/21 03/18/21 13:15 14:40 Temperature 98.9 F 99.3 F Pulse Rate 89 87 Respiratory 18 18 Rate Blood Pressure 140/83 133/92 O2 Sat by Pulse 100 100 Oximetry Medical Decision Making - Medical Decision Making 35-year-old male with history of IV drug use presents to the emergency department with a chief complaint of a nasal abscess. On physical examination, no immediate signs of infection at this time. It does appear like he has a septal hematoma. There was no direct injury to the nose. Patient afebrile in the emergency department. Blood cultures are pending. Lactic acid within normal limits. Mild leukocytosis. We'll discontinue Bactrim and give the gregg ent is single dose of Rocephin. We'll start on vancomycin considering his history of IV drug use. We'll admit him for further medical management. I discussed the case with Dr. Wing who will admit the patient for further medical management and recommended CT of the facial bones and neck pending. Case discussed with Dr. Chuck CADE on consult - Lab Data Result diagrams: 03/18/21 13:21 03/18/21 13:21 Lab Results 03/18/21 03/18/21 03/18/21 Range/Units 13:21 13:21 13:21 WBC 11.4 H (3.8-10.6) k/uL RBC 5.35 (4.30-5.90) m/uL Hgb 15.6 (13.0-17.5) gm/dL Hct 46.0 (39.0-53.0) % MCV 86.0 (80.0-100.0) fL MCH 29.2 (25.0-35.0) pg MCHC 34.0 (31.0-37.0) g/dL RDW 13.9 (11.5-15.5) % Plt Count 378 (150-450) k/uL MPV 7.0 Neutrophils % 84 % Lymphocytes % 12 % Monocytes % 3 % Eosinophils % 1 % Basophils % 0 % Neutrophils # 9.5 H (1.3-7.7) k/uL Lymphocytes # 1.4 (1.0-4.8) k/uL Monocytes # 0.3 (0-1.0) k/uL Eosinophils # 0.1 (0-0.7) k/uL Basophils # 0.0 (0-0.2) k/uL Sodium 138 (137-145) mmol/L Potassium 5.0 (3.5-5.1) mmol/L Chloride 102 (98-107) mmol/L Carbon Dioxide 25 (22-30) mmol/L Anion Gap 11 mmol/L BUN 13 (9-20) mg/dL Creatinine 0.74 (0.66-1.25) mg/dL Est GFR (CKD-EPI)AfAm >90 (>60 ml/min/1.73 sqM) Est GFR (CKD-EPI)NonAf >90 (>60 ml/min/1.73 sqM) Glucose 114 H (74-99) mg/dL Plasma Lactic Acid Rad 1.0 (0.7-2.0) mmol/L Calcium 10.5 H (8.4-10.2) mg/dL Total Bilirubin 0.7 (0.2-1.3) mg/dL AST 29 (17-59) U/L ALT 26 (4-49) U/L Alkaline Phosphatase 110 (38-126) U/L Total Protein 8.5 H (6.3-8.2) g/dL Albumin 4.7 (3.5-5.0) g/dL Disposition Clinical Impression: Nasal septal abscess Disposition: ADMITTED IP TO THIS HOSP Condition: Fair Is patient prescribed a controlled substance at d/c from ED?: No Referrals: None,Stated [Primary Care Provider] - 1-2 days Time of Disposition: 15:01
[2021-03-18 13:37] LABS: Basophils % (A) 0 %; Eosinophils # (A) 0.1 k/uL (0-0.7); Eosinophils % (A) 1 %; HGB 15.6 gm/dL (13.0-17.5); Lymphocytes # (A) 1.4 k/uL (1.0-4.8); Lymphocytes % (A) 12 %; MCH 29.2 pg (25.0-35.0); Monocytes # (A) 0.3 k/uL (0-1.0); Monocytes % (A) 3 %; Neutrophils # (A) 9.5 k/uL (1.3-7.7); Neutrophils % (A) 84 %; Platelet Count 378 k/uL (150-450); RBC 5.35 m/uL (4.30-5.90); RDW 13.9 % (11.5-15.5); WBC 11.4 k/uL (3.8-10.6)
[2021-03-18 13:46] LABS: ALT 26 U/L (4-49); AST 29 U/L (17-59); African American GFR (CKD) >90 (>60 ml/min/1.73 sqM); Albumin 4.7 g/dL (3.5-5.0); Alkaline Phosphatase 110 U/L (38-126); Anion Gap 11 mmol/L; Blood Urea Nitrogen 13 mg/dL (9-20); Calcium 10.5 mg/dL (8.4-10.2); Carbon Dioxide 25 mmol/L (22-30); Chloride 102 mmol/L (98-107); Glucose 114 mg/dL (74-99); Non-African American GFR(CKD) >90 (>60 ml/min/1.73 sqM); Sodium 138 mmol/L (137-145); Total Bilirubin 0.7 mg/dL (0.2-1.3); Total Protein 8.5 g/dL (6.3-8.2)
[2021-03-18] MEDS ORDERED: NALOXONE 0.4 MG/ML 1 ML VIAL IV PRN (14:28)
[2021-03-18] MEDS ORDERED: VANCOMYCIN IV PER PHARMACY 1 EACH MISC MISCELLANE PRN (14:28)
[2021-03-18] MEDS ORDERED: IBUPROFEN 400 MG TAB PO PRN (14:33)
[2021-03-18] MEDS ORDERED: ACETAMINOPHEN TAB 325 MG TAB PO PRN (14:33)
[2021-03-18] MEDS ORDERED: VANCOMYCIN 1,250 MG in SODIUM CHLORIDE 0.9% 250 ML IVPB ONE (14:45)
[2021-03-18] MEDS ORDERED: LORazepam 2 MG/ML INJ IV STA (15:07)
[2021-03-18] MEDS: SODIUM CHLORIDE 0.9% 1,000 ML IV SCH (15:39)
--- NOTE | 2021-03-18 15:44 | CT ---
EXAMINATION TYPE: CT soft tissue neck w con DATE OF EXAM: 03/18/2021 3:13 PM COMPARISON: Radiographs 01/25/2018.. CT facial bone 03/15/2021. HISTORY: nasal abscess CT DLP: 240.6 mGycm Automated exposure control for dose reduction was used. CONTRAST: CT scan of the neck is performed following with IV Contrast, patient injected with 100 mL of Isovue 3 00. Axial images are obtained, coronal and sagittal reformatted images are reviewed. FINDINGS: Airway: No gross abnormality seen. Parotid/submandibular glands: No gross abnormality seen. Carotid/Vascular Structures: Unremarkable. Osseous Structures: Unremarkable. Other: Moderate secretion and opacity of the nasal cavity again noted and overall mildly decreased co mpared to the prior study. Previous minimal amount of air is seen within the adjacent nasal soft tiss ues not present on this current study. IMPRESSION: Decreasing nasal secretion with moderate residual. Otherwise no acute abnormality.
--- NOTE | 2021-03-18 15:53 | P.HPIM ---
History of Present Illness H&P Date: 03/18/21 Chief Complaint: Fevers, chills 35 year old IV drug user presented for fevers, chills. Patient was seen across 2 ER visits over the last week for similar symptoms and was found to have a nasal abscess. He was initially recommended to be admittd for ENT consultation, but left AMA. On previous visit, when he left, he was prescribed bactrim which he took for 2 days, but unfortunately symptoms worsened and he developed systemic symptoms of fevers, chills. He also reported difficulty breathing through nose and odynophagia. Denies n/v, cp, palps, cough, dyspnea, abd pain, c/d, dysuria, dyschezia, numbness/weakness of extremities, LE edema. In the ER, patient has Tmax of 99.9, 139/90, HR 70, 96% on room air. CT maxillofacial and Neck are pending. Pt started on vancomycin and admitted for ENT consultation. Review of Systems All Systems reviewed and pertinent positives and negatives noted in HPI, all other symptoms are negative Past Medical History Past Medical History: No Reported History Additional Past Medical History / Comment(s): kidney stone History of Any Multi-Drug Resistant Organisms: None Reported Past Surgical History: Orthopedic Surgery Additional Past Surgical History / Comment(s): right hand ORIF Past Psychological History: No Psychological Hx Reported Smoking Status: Current every day smoker Past Alcohol Use History: None Reported Past Drug Use History: Heroin, Marijuana, Opiates Medications and Allergies Home Medications Medication Instructions Recorded Confirmed Type Sulfamethox-Tmp 800-160Mg [Bactrim 1 each PO Q12HR 7 Days #14 tab 03/16/21 Rx Ds] Allergies Allergy/AdvReac Type Severity Reaction Status Date / Time No Known Allergies Allergy Verified 03/18/21 12:35 Physical Exam Osteopathic Statement: *. No significant issues noted on an osteopathic structural exam other than those noted in the History and Physical/Consult. Vitals: Vital Signs Temp Pulse Resp BP Pulse Ox 03/18/21 14:40 99.3 F 87 18 133/92 100 03/18/21 13:15 98.9 F 89 18 140/83 100 03/18/21 13:00 99.0 F 98 18 134/87 97 03/18/21 12:45 99.9 F H 99 18 117/68 96 03/18/21 12:30 97.8 F 121 H 20 128/80 99 Intake and Output 03/18/21 03/18/21 03/18/21 06:59 14:59 22:59 Other: Weight 68.039 kg Gen: awake, alert HEENT: normocephalic, atraumatic, good hearing acuity, moist mucous membranes Resp: good air exchange, breathing comfortably with no accessory muscle use CVS: good distal perfusion x 4, GI: soft, NTTP, ND : no SPT, no CVAT, mcdonough catheter not present MSK: no pitting edema, no clubbing Neuro: non-focal, moving all extremities Psych: cooperative, euthymic mood Results CBC & Chem 7: 03/18/21 13:21 03/18/21 13:21 Labs: Abnormal Lab Results - Last 24 Hours (Table) 03/18/21 03/18/21 Range/Units 13:21 13:21 WBC 11.4 H (3.8-10.6) k/uL Neutrophils # 9.5 H (1.3-7.7) k/uL Glucose 114 H (74-99) mg/dL Calcium 10.5 H (8.4-10.2) mg/dL Total Protein 8.5 H (6.3-8.2) g/dL Assessment and Plan Assessment: Sepsis Nasal abscess -Admit inpatient -ENT consult -CT maxillofacial/neck, pending -Vancomycin, trough goal 15 -Follow blood cultures -Follow up wound cultures -IV fluids -Tylenol/ibuprofen when necessary for pain Injectable drug use Bipolar disorder -Ativan 1 mg every 4 hours when necessary for anxiety Patient is a full code DVT prophylaxis with enoxaparin
--- NOTE | 2021-03-18 16:01 | CT ---
EXAMINATION TYPE: CT facial bones w con DATE OF EXAM: 03/18/2021 COMPARISON: CT 03/15/2021. HISTORY: nasal abscess CT DLP: 436.6 mGycm Automated exposure control for dose reduction was used. CONTRAST: CT scan of the facial bones is performed with IV Contrast, patient injected with 100 mL of Isovue 300 . TECHNIQUE: CT scan of the facial bones is performed without contrast, axial images are obtained, charly nal reformatted images are also reviewed. FINDINGS: There is moderate secretion and opacification of the nasal cavity, mildly decreased compared to the p rior study. Previous trace amount of air within the adjacent nasal soft tissues are no longer present . Otherwise paranasal sinuses and mastoid air cells are adequately aerated. No acute fracture of the mediastinal structures. The zygomatic arch, mandibles and bilateral orbits a re grossly intact. IMPRESSION: Decreasing nasal secretion with moderate residual. Otherwise no acute abnormality.
[2021-03-18] MEDS: NICOTINE 21MG/24HR PATCH TRANSDERM SCH (17:50)
[2021-03-18] MEDS: ONDANSETRON 4 MG/2 ML VIAL IVP PRN (19:45)
[2021-03-18] MEDS: LORazepam 2 MG/ML INJ IV PRN (19:54)
[2021-03-18] MEDS: VANCOMYCIN 1,250 MG in SODIUM CHLORIDE 0.9% 250 ML IVPB SCH (23:57)
[2021-03-19] MEDS: LORazepam 2 MG/ML INJ IV PRN ×5 (00:03→21:04)
[2021-03-19 05:29] LABS: Basophils # (A) 0.1 k/uL (0-0.2); Basophils % (A) 1 %; Eosinophils % (A) 0 %; HGB 14.5 gm/dL (13.0-17.5); Lymphocytes # (A) 2.1 k/uL (1.0-4.8); Lymphocytes % (A) 20 %; MCH 29.4 pg (25.0-35.0); MCHC 34.6 g/dL (31.0-37.0); MCV 85.2 fL (80.0-100.0); Mean Platelet Volume 6.9; Monocytes # (A) 0.4 k/uL (0-1.0); Monocytes % (A) 4 %; Neutrophils # (A) 7.4 k/uL (1.3-7.7); Neutrophils % (A) 73 %; Platelet Count 406 k/uL (150-450); RBC 4.93 m/uL (4.30-5.90); RDW 13.8 % (11.5-15.5); WBC 10.2 k/uL (3.8-10.6)
[2021-03-19 05:45] LABS: African American GFR (CKD) >90 (>60 ml/min/1.73 sqM); Anion Gap 8 mmol/L; Blood Urea Nitrogen 9 mg/dL (9-20); Calcium 9.3 mg/dL (8.4-10.2); Carbon Dioxide 26 mmol/L (22-30); Chloride 103 mmol/L (98-107); Glucose 108 mg/dL (74-99); Magnesium 1.9 mg/dL (1.6-2.3); Non-African American GFR(CKD) >90 (>60 ml/min/1.73 sqM); Potassium 4.3 mmol/L (3.5-5.1); Sodium 137 mmol/L (137-145)
[2021-03-19] MEDS: VANCOMYCIN 1,250 MG in SODIUM CHLORIDE 0.9% 250 ML IVPB SCH ×3 (06:19→23:47)
[2021-03-19] MEDS: ENOXAPARIN 40 MG/0.4 ML SYRINGE SQ SCH (09:21)
[2021-03-19] MEDS: NICOTINE 21MG/24HR PATCH TRANSDERM SCH (09:22)
[2021-03-19] MEDS: ONDANSETRON 4 MG/2 ML VIAL IVP PRN (09:28)
[2021-03-19] MEDS: SODIUM CHLORIDE 0.9% 1,000 ML IV SCH ×2 (09:35→21:06)
[2021-03-19] MEDS ORDERED: LORazepam 2 MG/ML INJ IV STA (13:02)
--- NOTE | 2021-03-19 14:38 | P.PN ---
Subjective Progress Note Date: 03/19/21 No new complaints today. Pending ENT evaluation. CT Face/Neck demonstrate improving nasal secretion but with moderate residual. Objective - Vital Signs Vital signs: Vital Signs Temp 98.3 F 03/19/21 11:25 Pulse 106 H 03/19/21 11:25 Resp 18 03/19/21 11:25 BP 122/80 03/19/21 11:25 Pulse Ox 99 03/19/21 11:25 Intake & Output 03/18/21 03/19/21 03/19/21 18:59 06:59 18:59 Intake Total 475 Balance 475 Weight 68.039 kg Intake: Intake, IV Titration 475 Amount Sodium Chloride 0.9% 1, 225 000 ml @ 75 mls/hr IV . [id number] [facility] Rx#:[id number] Vancomycin 1,250 mg In 250 Sodium Chloride 0.9% 250 ml @ 125 mls/hr IVPB Q8H [facility] Rx#:[id number] Other: Voiding Method Toilet Toilet # Voids 1 1 # Emeses 1 1 - Exam Gen: awake, alert HEENT: normocephalic, atraumatic, good hearing acuity, moist mucous membranes Resp: good air exchange, breathing comfortably with no accessory muscle use CVS: good distal perfusion x 4, GI: soft, NTTP, ND : no SPT, no CVAT, mcdonough catheter not present MSK: no pitting edema, no clubbing Neuro: non-focal, moving all extremities Psych: cooperative, euthymic mood - Labs CBC & Chem 7: 03/19/21 04:56 03/19/21 04:56 Labs: Abnormal Lab Results - Last 24 Hours (Table) 03/19/21 Range/Units 04:56 Glucose 108 H (74-99) mg/dL Assessment and Plan Assessment: Sepsis Nasal abscess -Admit inpatient -ENT consult -CT maxillofacial/neck, improving secretion and opacification of nasal cavity. -Vancomycin, trough goal 15 -Follow blood cultures -Follow up wound cultures -IV fluids -Tylenol/ibuprofen when necessary for pain Injectable drug use Bipolar disorder -Ativan 1 mg every 4 hours when necessary for anxiety Patient is a full code DVT prophylaxis with enoxaparin
[2021-03-19] MEDS: DEXAMETHASONE SOD PHOSPHATE 10 MG/ML 1 ML VIAL IV SCH ×2 (16:59→23:47)
[2021-03-19] MEDS: OXYMETAZOLINE 0.05% NASL SPRAY 1 SPRAY BOTTLE NASAL SCH ×2 (17:00→21:03)
[2021-03-19 20:06] VITALS: RESP 16
[2021-03-20 04:18] VITALS: BP 142/88; PULSE 84; TEMP 98
[2021-03-20] MEDS: LORazepam 2 MG/ML INJ IV PRN (04:25)
[2021-03-20] MEDS ORDERED: VANCOMYCIN TROUGH DUE 1 EACH MISC MISCELLANE ONE (06:00)
--- NOTE | 2021-03-20 06:13 | CONS ---
CONSULTATION DATE OF THE CONSULTATION: 03/18/2021. REASON FOR THE CONSULTATION: Right nasal abscess. HISTORY OF PRESENT ILLNESS: This patient is a pleasant 35-year-old male who was admitted to [facility] for evaluation and treatment of a right nasal abscess. The patient has had a history that his symptoms started approximately 3 or 4 days prior to his admission. He was treated at another facility ([facility]?) but he left AMA because he was not happy with the treatment that he was receiving by the doctor. He came to [facility] and was seen and discharged on Bactrim. He took the Bactrim but after several days he did not feel he was getting any better. He returned to [facility] Emergency room and was subsequently admitted for treatment. He was placed on vancomycin intravenously. The patient stated that the right nose started out as simply a pimple or soreness in the right side. He denies having squeezed the area, but states that the swelling got worse and also the pain. A CT scan of the face and neck, which was performed in emergency room, was unremarkable. It did not show any evidence of any abscess. The ER physician felt that the patient might have a septal abscess. The patient is complaining of having nasal stuffiness on the right side. He smokes approximately 1 pack of cigarettes per day and has been advised to quit for obvious health reasons. At the time that he was seen in emergency room, he had a very moderately elevated WBC of 11.4 and was afebrile. He was afebrile. At the present time, he is resting comfortably in the room in no acute distress and has a purulent right nasal discharge. PAST MEDICAL HISTORY: He has no allergies to medications. MEDICATIONS: He is not on any home medications. He has no history of asthma, diabetes mellitus or hypertension. REVIEW OF SYSTEMS: The review of systems is essentially noncontributory. PHYSICAL EXAM: This patient is a pleasant 35-year-old male who was alert, cooperative and well- oriented to time and place. He is in no acute distress at the time and is not complaining of any significant pain. he has not required any pain medication. HEENT examination: Patient is normocephalic. Tympanic membranes are normal. Middle ear spaces are free of any fluid or infection. Pupils equal, round, and reactive to light and accommodation. Extraocular movements within normal limits. Intranasal examination reveals mild septal deviation with compensatory hypertrophy inferior turbinates bilaterally. There is an area of swelling and inflammation on the right lateral nasal wall anteriorly near the right nasal alae. There appears to be swelling and a probable abscess which has ruptured and it is now spontaneously draining. I do not see evidence of any septal hematoma or septal abscess. There is generalized edema and swelling of the soft tissues of the right nasal passage. Palpation of the neck is negative for any neck masses. Examination of oropharynx is unremarkable. Cranial nerves 2-12 and the remainder of the head and neck exam is unremarkable. CHEST/CARDIOVASCULAR: Lung ojeda are clear to percussion and auscultation. Patient is in regular sinus rhythm. S1 and S2 are present. No murmurs S3s or S4. ABDOMEN: There is no evident masses, megaly or tenderness. Abdomen is soft. SKIN is unremarkable. MUSCULOSKELETAL and remainder of physical exam is essentially unremarkable. IMPRESSION: Right nasal abscess, spontaneous rupture and drainage. PLAN: Since this patient's nasal abscess is draining, I do not feel any further surgical intervention is needed at this time. I applied a mustache dressing using an oval eye patch and explained to the patient and nursing staff how to make one. This is simply to catch the purulent drainage that he has coming out of the nose. I may have the patient place Bactroban ointment on a Q-tip and swab of the right nasal passage 3 times daily for 10 days. From an ENT standpoint this patient could be discharged home on an oral antibiotic such as Cleocin 150 mg #62 capsules p.o. t.i.d. with food. The patient should be cautioned to stop the medication of course if any diarrhea appears. Certainly Bactrim was a poor choice for these type of infections. The patient stated that he has a history of intravenous drug use and that his drug of choice was heroin. He has been drug free for quite a while and I congratulated him for that. He also has a past history of using marijuana and opioids. It was interesting that the patient was very open about his drug addiction and he felt very comfortable showing the track anaya on his arm and admitted that he would "shoot up" anywhere he could find a vein when he was using heroin. I want to thank you for allowing me to assist in the care of your patient. If I could be of further assistance, please feel free to call my office. MMODL / DWAYNEN: [id number] / CHANTEL
[2021-03-20] MEDS: VANCOMYCIN 1,250 MG in SODIUM CHLORIDE 0.9% 250 ML IVPB SCH (08:26)
[2021-03-20] MEDS: NICOTINE 21MG/24HR PATCH TRANSDERM SCH (08:26)
[2021-03-20] MEDS: ENOXAPARIN 40 MG/0.4 ML SYRINGE SQ SCH (08:26)
[2021-03-20] MEDS: SODIUM CHLORIDE 0.9% 1,000 ML IV SCH (08:27)
[2021-03-20] MEDS ORDERED: DEXAMETHASONE SOD PHOSPHATE 10 MG/ML 1 ML VIAL IV ONE (08:30)
[2021-03-20] MEDS: OXYMETAZOLINE 0.05% NASL SPRAY 1 SPRAY BOTTLE NASAL SCH (08:49)
[2021-03-20] MEDS ORDERED: LORazepam 1 MG TAB PO PRN (09:31)
--- NOTE | 2021-03-20 13:25 | P.DS ---
Providers Date of admission: 03/18/21 15:13 Expected date of discharge: 03/20/21 Attending physician: Therese Kessler MD Consults: 03/18/21 14:38 Consult Physician Routine Consulting Provider: Caleb Bang Consult Reason/Comments: Nasal abscess Do you want consulting provider notified?: Yes Primary care physician: Stated None Hospital Course: Sepsis Nasal abscess Patient was admitted and placed on vancomycin. He had CT face/neck which showed improving secretion and opacification of nasal cavity. He was seen by ENT who prescribed oxymetolazone and recommended clindamycin, no surgical intervention warranted. Pt was discharged with clindamycin q8h for an additional 8 days. He will f/u with PCP. Assessment: Gen: awake, alert HEENT: normocephalic, atraumatic, good hearing acuity, moist mucous membranes Resp: good air exchange, breathing comfortably with no accessory muscle use CVS: good distal perfusion x 4, GI: soft, NTTP, ND : no SPT, no CVAT, mcdonough catheter not present MSK: no pitting edema, no clubbing Neuro: non-focal, moving all extremities Psych: cooperative, euthymic mood Patient Condition at Discharge: Good Plan - Discharge Summary New Discharge Prescriptions: New Oxymetazoline 0.05% Nasl [place] [Afrin 0.05% Nasal [place]] 2 spray NASAL TID #1 bottle Clindamycin [Cleocin] 150 mg PO Q8H #62 cap Discontinued Sulfamethox-Tmp 800-160Mg [Bactrim Ds] 1 each PO Q12HR 7 Days #14 tab Discharge Medication List Clindamycin [Cleocin] 150 mg PO Q8H #62 cap 03/20/21 [Rx] Oxymetazoline 0.05% Nasl [place] [Afrin 0.05% Nasal [place]] 2 spray NASAL TID #1 bottle 03/20/21 [Rx] Follow up Appointment(s)/Referral(s): None,Stated [Primary Care Provider] - 1-2 days Caleb Bang MD [STAFF PHYSICIAN] - 1 Week (please scout lto make your own appintment, office currently closed for lunch. ) Patient Instructions/Handouts: Abscess (ED) Discharge Disposition: HOME SELF-CARE
[2021-03-20] MEDS ORDERED: VANCOMYCIN 1,500 MG in SODIUM CHLORIDE 0.9% 250 ML IVPB SCH (16:00)
== END 2021-03-20 12:14 | disposition home or self-care (01) | DRG 872 ==
LOC: EC 12:29 → 5NMEDONC 15:13
PROVIDERS: ADMIT Internal Medicine; ATTEND Internal Medicine
DX: A41.9 Sepsis, unspecified organism (principal); J34.0 Abscess, furuncle and carbuncle of nose; F17.210 Nicotine dependence, cigarettes, uncomplicated; F31.9 Bipolar disorder, unspecified; F41.9 Anxiety disorder, unspecified; J32.9 Chronic sinusitis, unspecified; F19.90 Other psychoactive substance use, unspecified, uncomplicated; R13.10 Dysphagia, unspecified; Z87.442 Personal history of urinary calculi; Z86.59 Personal history of other mental and behavioral disorders
CPT/HCPCS: 36415; 70487; 70491; 80048; 80053; 80202; 83605; 83735; 85025; 87040; 96361; 96374; 99285

== ENCOUNTER 2021-05-15 06:59 | Emergency (ER) | payer OTHER ==
[2021-05-15 07:07] VITALS: TEMP 98
--- NOTE | 2021-05-15 07:27 | ED ---
Male Urogenital HPI - General Chief complaint: Urogenital Stated complaint: unable to urinate Time Seen by Provider: 05/15/21 07:10 Source: patient, RN notes reviewed Mode of arrival: ambulatory Limitations: no limitations - History of Present Illness Initial comments: 36-year-old male who is been able urinate since chest today was because he wants to increase his oral fluids. He complains of lower abdominal discomfort urinating he does have a history kidney stones he states he also has been on some new psychiatric medications including trazodone he has not noted other medication is named. No fevers or chills he did have some sweats because of the pain. No nausea vomiting diarrhea no other complaints or other modifying factors no prior history of urinary retention except for possibly with a kidney stones. He does deny any back pain. No hematuria. - Related Data Previous Rx's Medication Instructions Recorded Clindamycin [Cleocin] 150 mg PO Q8H #62 cap 03/20/21 Oxymetazoline 0.05% Nasl [place] 2 spray NASAL TID #1 bottle 03/20/21 [Afrin 0.05% Nasal [place]] Allergies Allergy/AdvReac Type Severity Reaction Status Date / Time No Known Allergies Allergy Verified 05/15/21 07:06 Review of Systems ROS Statement: Those systems with pertinent positive or pertinent negative responses have been documented in the HPI. ROS Other: All systems not noted in ROS Statement are negative. Past Medical History Past Medical History: No Reported History Additional Past Medical History / Comment(s): kidney stone History of Any Multi-Drug Resistant Organisms: None Reported Past Surgical History: Orthopedic Surgery Additional Past Surgical History / Comment(s): right hand ORIF Past Psychological History: No Psychological Hx Reported Smoking Status: Current every day smoker Past Alcohol Use History: None Reported Past Drug Use History: Heroin, Marijuana, Opiates General Exam - General Exam Comments Initial Comments: This is a well-developed asthenic appearing male who is awake alert oriented 3 Limitations: no limitations General appearance: alert, anxious, in distress Head exam: Present: atraumatic, normocephalic, normal inspection Eye exam: Present: normal appearance, PERRL, EOMI. Absent: scleral icterus, conjunctival injection, periorbital swelling ENT exam: Present: normal exam, mucous membranes moist Neck exam: Present: normal inspection. Absent: tenderness, meningismus, lymphadenopathy Respiratory exam: Present: normal lung sounds bilaterally. Absent: respiratory distress, wheezes, rales, rhonchi, stridor Cardiovascular Exam: Present: normal rhythm, tachycardia, normal heart sounds. Absent: systolic murmur, diastolic murmur, rubs, gallop, clicks GI/Abdominal exam: Present: soft, normal bowel sounds, other (Evidence of distended bladder). Absent: distended, tenderness, guarding, rebound, rigid Rectal exam: Present: deferred exam: Present: normal inspection. Absent: testicular tenderness, urethral discharge, scrotal swelling Extremities exam: Present: normal inspection, full ROM, normal capillary refill. Absent: tenderness, pedal edema, joint swelling, calf tenderness Back exam: Present: normal inspection. Absent: CVA tenderness (R), CVA tenderness (L) Neurological exam: Present: alert, oriented X3, CN II-XII intact Psychiatric exam: Present: normal affect, anxious Skin exam: Present: warm, dry, intact, normal color. Absent: rash Course Vital Signs 05/15/21 07:06 Temperature 98 F Pulse Rate 120 H Respiratory 24 Rate Blood Pressure 136/88 O2 Sat by Pulse 99 Oximetry Medical Decision Making - Medical Decision Making Labs revealed elevated liver enzymes patient does admit to being a heroin addict. Bilirubin is within normal limits patient has had dark colored urine with elevated white blood cells. Patient was given a shot of Rocephin. He will be discharged with a [place] catheter leg bag. Instructed to follow-up with his own doctor tomorrow or return here for removal of the catheter. Was respect to the elevated liver enzymes he is to follow-up - Lab Data Result diagrams: 05/15/21 07:44 Lab Results 05/15/21 05/15/21 Range/Units 07:44 07:44 Sodium 135 L (137-145) mmol/L Potassium 4.7 (3.5-5.1) mmol/L Chloride 100 (98-107) mmol/L Carbon Dioxide 22 (22-30) mmol/L Anion Gap 13 mmol/L BUN 11 (9-20) mg/dL Creatinine 0.54 L (0.66-1.25) mg/dL Est GFR (CKD-EPI)AfAm >90 (>60 ml/min/1.73 sqM) Est GFR (CKD-EPI)NonAf >90 (>60 ml/min/1.73 sqM) Glucose 132 H (74-99) mg/dL Calcium 9.4 (8.4-10.2) mg/dL Total Bilirubin 1.0 (0.2-1.3) mg/dL AST 159 H (17-59) U/L ALT 315 H (4-49) U/L Alkaline Phosphatase 183 H (38-126) U/L Total Protein 8.9 H (6.3-8.2) g/dL Albumin 4.7 (3.5-5.0) g/dL Urine Color Yellow Urine Appearance Clear (Clear) Urine pH 7.0 (5.0-8.0) Ur Specific [place] 1.023 (1.001-1.035) Urine Protein Trace H (Negative) Urine Glucose (UA) Negative (Negative) Urine Ketones Negative (Negative) Urine Blood Negative (Negative) Urine Nitrite Negative (Negative) Urine Bilirubin Negative (Negative) Urine Urobilinogen 4.0 (<2.0) mg/dL Ur Leukocyte Esterase Moderate H (Negative) Urine RBC 1 (0-5) /hpf Urine WBC 87 H (0-5) /hpf Amorphous Sediment Occasional H (None) /hpf Urine Bacteria Rare H (None) /hpf Urine Mucus Rare H (None) /hpf Disposition Clinical Impression: Acute urinary retention, Elevated liver enzymes, Heroin abuse Disposition: HOME SELF-CARE Condition: Good Additional Instructions: Follow-up with your doctor for [place] catheter removal or return to the emergency department for the same Is patient prescribed a controlled substance at d/c from ED?: No Referrals: Estrada Merrill [Primary Care Provider] - 1-2 days
[2021-05-15 08:07] LABS: ALT 315 U/L (4-49); AST 159 U/L (17-59); African American GFR (CKD) >90 (>60 ml/min/1.73 sqM); Albumin 4.7 g/dL (3.5-5.0); Alkaline Phosphatase 183 U/L (38-126); Anion Gap 13 mmol/L; Blood Urea Nitrogen 11 mg/dL (9-20); Calcium 9.4 mg/dL (8.4-10.2); Carbon Dioxide 22 mmol/L (22-30); Chloride 100 mmol/L (98-107); Glucose 132 mg/dL (74-99); Non-African American GFR(CKD) >90 (>60 ml/min/1.73 sqM); Potassium 4.7 mmol/L (3.5-5.1); Sodium 135 mmol/L (137-145); Total Protein 8.9 g/dL (6.3-8.2)
[2021-05-15 08:10] LABS: Amorphous Sediment,Urine Occasional /hpf; Appearance,Urine Clear (Clear); Bacteria,Urine Rare /hpf; Bilirubin,Urine Negative (Negative); Blood,Urine Negative (Negative); Color,Urine Yellow; Glucose,Urine (UA) Negative (Negative); Ketones,Urine Negative (Negative); Leukocyte Esterase,Urine Moderate (Negative); Mucus,Urine Rare /hpf; Nitrite,Urine Negative (Negative); Protein,Urine Trace (Negative); RBC,Urine 1 /hpf (0-5); Specific Gravity,Urine 1.023 (1.001-1.035); WBC,Urine 87 /hpf (0-5)
[2021-05-15] MEDS ORDERED: cefTRIAXone IN SWFI 1,000 MG/10 ML SYRINGE IVP STA (08:28)
[2021-05-15] MEDS ORDERED: cefTRIAXone 1,000 MG VIAL (IM USE) IM STA (08:30)
[2021-05-15 09:06] VITALS: BP 113/78; PULSE 75; RESP 18
[2021-05-15 15:48] LABS: Hepatitis A Antibody IgM Non-Reactive (Non-Reactive); Hepatitis B Core IgM Non-Reactive (Non-Reactive); Hepatitis B Surface Antigen Non-Reactive (Non-Reactive); Hepatitis C IgG Antibody Reactive (Non-Reactive)
== END 2021-05-15 09:06 | disposition home or self-care (01) ==
LOC: EC 06:59
DX: R33.9 Retention of urine, unspecified (principal); F11.10 Opioid abuse, uncomplicated; R94.5 Abnormal results of liver function studies; F17.200 Nicotine dependence, unspecified, uncomplicated; F12.90 Cannabis use, unspecified, uncomplicated; Z87.442 Personal history of urinary calculi
CPT/HCPCS: 36415; 51702; 80053; 80074; 81001; 87086; 96372; 99283

== ENCOUNTER 2021-05-17 09:15 | Emergency (ER) | payer OTHER ==
[2021-05-17 09:18] VITALS: BP 126/84; PULSE 64; RESP 16; TEMP 98.1
[2021-05-17] MEDS ORDERED: SULFAMETH-TMP DS STARTER PACK 2 TAB BTL PO STA (09:57)
--- NOTE | 2021-05-17 10:40 | ED ---
General Adult HPI - General Chief complaint: Recheck/Abnormal Lab/Rx Stated complaint: catheter removal Time Seen by Provider: 05/17/21 09:23 Source: patient, RN notes reviewed Mode of arrival: EMS Limitations: no limitations - History of Present Illness Initial comments: 36-year-old male presents to the emergency room for a chief complaint of catheter removal. Patient has a urinary catheter in place. Patient states this was placed 2 days ago because he could not urinate. He states he was told to come back to the ER to have it removed. Patient states he was given Rocephin here in the emergency room but was not sent home on any medications. Patient denies fevers or chills. Denies any upper back pain. Patient is an IV drug user.Patient has no other complaints at this time including shortness of breath, chest pain, abdominal pain, nausea or vomiting, headache, or visual changes. - Related Data Previous Rx's Medication Instructions Recorded Clindamycin [Cleocin] 150 mg PO Q8H #62 cap 03/20/21 Oxymetazoline 0.05% Nasl [place] 2 spray NASAL TID #1 bottle 03/20/21 [Afrin 0.05% Nasal [place]] Sulfamethox-Tmp 800-160Mg [Bactrim 1 tab PO Q12HR 5 Days #10 tab 05/17/21 DS 800-160 mg] Allergies Allergy/AdvReac Type Severity Reaction Status Date / Time No Known Allergies Allergy Verified 05/17/21 09:18 Review of Systems ROS Statement: Those systems with pertinent positive or pertinent negative responses have been documented in the HPI. ROS Other: All systems not noted in ROS Statement are negative. Past Medical History Past Medical History: No Reported History Additional Past Medical History / Comment(s): kidney stone History of Any Multi-Drug Resistant Organisms: None Reported Past Surgical History: Orthopedic Surgery Additional Past Surgical History / Comment(s): right hand ORIF Past Psychological History: No Psychological Hx Reported Smoking Status: Current every day smoker Past Alcohol Use History: None Reported Past Drug Use History: Heroin, Marijuana, Opiates General Exam Limitations: no limitations General appearance: alert, in no apparent distress Head exam: Present: atraumatic Eye exam: Present: normal appearance, PERRL, EOMI. Absent: scleral icterus, conjunctival injection ENT exam: Present: normal exam, mucous membranes moist Neck exam: Present: normal inspection, full ROM. Absent: tenderness Respiratory exam: Present: normal lung sounds bilaterally. Absent: respiratory distress, wheezes Cardiovascular Exam: Present: regular rate, normal rhythm, normal heart sounds GI/Abdominal exam: Present: soft, normal bowel sounds. Absent: distended, tenderness Back exam: Absent: CVA tenderness (R), CVA tenderness (L) Course Vital Signs 05/17/21 09:16 Temperature 98.1 F Pulse Rate 64 Respiratory 16 Rate Blood Pressure 126/84 O2 Sat by Pulse 97 Oximetry Medical Decision Making - Medical Decision Making Vitals are stable. Patient is well appearing. Abdominal exam is benign. I did review previous visit. It appears patient's urine culture came back as a positive MRSA culture. Patient not currently on any antibiotics, will start Bactrim. Given he has an infection which is likely the cause of his retention Dr. Chaudhari and I did recommend he keep this placed for at least a week until the antibiotics can treat the infection. He does agree to this. I did recommend that he follow up with urology to get the catheter removed but if he can absolutely not get into urology he can return here.Patient has no other complaints at this time including shortness of breath, chest pain, abdominal pain, nausea or vomiting, headache, or visual changes. Patient did test positive for hep c at last visit. States that he has a history of this and is aware. will f/u with his doctor. Disposition Clinical Impression: UTI (urinary tract infection) Disposition: HOME SELF-CARE Condition: Good Instructions (If sedation given, give patient instructions): Urinary Tract Infection in Men (ED) Additional Instructions: take medication as directed. Follow-up with urology. If you cannot see urology return for catheter removal in one week. Prescriptions: Sulfamethox-Tmp 800-160Mg [Bactrim DS 800-160 mg] 1 tab PO Q12HR 5 Days #10 tab Is patient prescribed a controlled substance at d/c from ED?: No Referrals: Estrada Merrill [Primary Care Provider] - 1-2 days Paras Alexander MD [STAFF PHYSICIAN] - 1-2 days Time of Disposition: 10:39
== END 2021-05-17 10:52 | disposition home or self-care (01) ==
LOC: EC 09:15
DX: N39.0 Urinary tract infection, site not specified (principal); F17.200 Nicotine dependence, unspecified, uncomplicated
CPT/HCPCS: 99283

== ENCOUNTER 2021-05-18 14:25 | Emergency (ER) | payer OTHER ==
[2021-05-18 14:48] VITALS: BP 123/87; PULSE 100; RESP 20; TEMP 98.6
[2021-05-18 15:14] LABS: Appearance,Urine Clear (Clear); Bilirubin,Urine Negative (Negative); Blood,Urine Moderate (Negative); Color,Urine Yellow; Glucose,Urine (UA) Negative (Negative); Ketones,Urine Negative (Negative); Leukocyte Esterase,Urine Moderate (Negative); Mucus,Urine Rare /hpf; Nitrite,Urine Negative (Negative); PH, Urine 7.5 (5.0-8.0); Protein,Urine Trace (Negative); RBC,Urine >182 /hpf (0-5); Specific Gravity,Urine 1.022 (1.001-1.035); WBC,Urine 47 /hpf (0-5)
[2021-05-18] MEDS ORDERED: KETOROLAC 15 MG/ML 1 ML VIAL IVP STA (16:38)
[2021-05-18] MEDS ORDERED: SODIUM CHLORIDE 0.9% 1,000 ML IV STA (16:38)
--- NOTE | 2021-05-18 16:44 | ED ---
Abdominal Pain HPI - General Source: patient, family Mode of arrival: ambulatory Limitations: no limitations - History of Present Illness MD Complaint: abdominal pain -: days(s) (4) Location: suprapubic Radiation: none Severity scale (1-10): 8 Associated Symptoms: nausea, vomiting, chills <Chele Albarran - Last Filed: 05/18/21 20:48> <Ammon Burns - Last Filed: 05/18/21 23:32> - General Chief Complaint: Abdominal Pain Stated Complaint: Revisit/Male GI Time Seen by Provider: 05/18/21 16:30 - History of Present Illness Initial Comments: 36-year-old well-appearing white male, alert and oriented 4, presents to the emergency room with family member complaining of pelvic discomfort after Chilel catheter was placed on May 14. Patient states that he was having urinary retention at that time and was told to follow-up with urology however they told him he could not come in for at least 2 weeks and was told to return to the emergency room for catheter removal. There is becki urine in the leg bag. However patient states that he has been having purulent discharge around the urethral meatus and discomfort. He states that he also has had chills and nausea and vomiting. (Chele Albarran) - Related Data Home Medications Medication Instructions Recorded Confirmed OLANZapine [ZyPREXA Zydis] 5 mg PO HS 05/18/21 05/18/21 Oxymetazoline 0.05% Nasl Idamay 2 spray NASAL TID PRN 05/18/21 05/18/21 [Afrin 0.05% Nasal Idamay] traZODone HCL [Desyrel] 50 mg PO HS PRN 05/18/21 05/18/21 Previous Rx's Medication Instructions Recorded Sulfamethox-Tmp 800-160Mg [Bactrim 1 tab PO Q12HR 5 Days #10 tab 05/17/21 DS 800-160 mg] Allergies Allergy/AdvReac Type Severity Reaction Status Date / Time No Known Allergies Allergy Verified 05/18/21 17:14 Review of Systems ROS Other: All systems not noted in ROS Statement are negative. <Chele Albarran - Last Filed: 05/18/21 20:48> ROS Other: All systems not noted in ROS Statement are negative. <Ammon Burns - Last Filed: 05/18/21 23:32> ROS Statement: Those systems with pertinent positive or pertinent negative responses have been documented in the HPI. Past Medical History Past Medical History: No Reported History Additional Past Medical History / Comment(s): kidney stone History of Any Multi-Drug Resistant Organisms: None Reported Past Surgical History: Orthopedic Surgery Additional Past Surgical History / Comment(s): right hand ORIF Past Psychological History: No Psychological Hx Reported Smoking Status: Current every day smoker Past Alcohol Use History: None Reported Past Drug Use History: Heroin, Marijuana, Opiates <Chele Albarran - Last Filed: 05/18/21 20:48> General Exam Limitations: no limitations General appearance: alert, in no apparent distress Head exam: Present: atraumatic, normocephalic, normal inspection Eye exam: Present: normal appearance, PERRL, EOMI. Absent: scleral icterus, conjunctival injection, periorbital swelling Neck exam: Present: normal inspection, full ROM. Absent: tenderness, meningismus, lymphadenopathy Respiratory exam: Present: normal lung sounds bilaterally. Absent: respiratory distress, wheezes, rales, rhonchi, stridor, chest wall tenderness, accessory muscle use, decreased breath sounds Cardiovascular Exam: Present: regular rate, normal rhythm, normal heart sounds. Absent: systolic murmur, diastolic murmur, rubs, gallop, clicks, JVD GI/Abdominal exam: Present: soft, normal bowel sounds. Absent: distended, tenderness, guarding, rebound, rigid exam: Present: normal inspection, circumcision. Absent: testicular tenderness, urethral discharge, scrotal swelling Back exam: Present: normal inspection, full ROM. Absent: tenderness, CVA tenderness (R), CVA tenderness (L), muscle spasm, paraspinal tenderness, vertebral tenderness, rash noted Neurological exam: Present: alert, oriented X3, CN II-XII intact Psychiatric exam: Present: normal affect, normal mood Skin exam: Present: warm, dry, intact, normal color. Absent: rash, cyanosis, diaphoretic, petechiae, pallor <Chele Albarran - Last Filed: 05/18/21 20:48> Course - Reevaluation(s) Time: 19:45 <Chele Albarran - Last Filed: 05/18/21 20:48> Vital Signs 05/18/21 14:45 Temperature 98.6 F Pulse Rate 100 Respiratory 20 Rate Blood Pressure 123/87 O2 Sat by Pulse 100 Oximetry - Reevaluation(s) Reevaluation #1: 05/18/21 19:45 Patient sitting on the side of the bed feeling much better after the Chilel catheter was removed. He is still waiting to go to ultrasound. (Chele Albarran) Medical Decision Making - Lab Data Result diagrams: 05/18/21 17:53 05/18/21 17:53 <Chele Albarran - Last Filed: 05/18/21 20:48> - Lab Data Result diagrams: 05/18/21 17:53 05/18/21 17:53 <Ammon Burns - Last Filed: 05/18/21 23:32> - Medical Decision Making Patient is well-appearing and afebrile in the emergency room. There is no purulent drainage from the urethral meatus. He has no erythema or scrotal pain. He is currently taking Bactrim for urinary tract infection which it is improving since yesterday. There is no leukocytosis. Ultrasound shows normal appearance of bilateral kidneys, nondistended urinary bladder. There are no masses identified. Patient left the emergency room AGAINST MEDICAL ADVICE prior to ultrasound report being completed. He was directed to continue his antibiotics and follow up with his primary care doctor and urology. (Chele Albarran) Prior to receiving the recommended ultrasound, patient left AGAINST MEDICAL ADVICE. The patient was apprised of the potential risks of leaving the hospital AGAINST MEDICAL ADVICE, including serious complications, permanent disability, and . At the time of my interview the patient, the patient was alert, oriented, and capable. Patient signed AMA form, which was witnessed and signed by nursing staff, and placed in patient's chart. We urged the patient to return to the hospital as soon as possible to complete evaluation and treatment. (Ammon Burns) - Lab Data Lab Results 05/18/21 05/18/21 05/18/21 Range/Units 14:49 17:53 17:53 WBC 9.9 (3.8-10.6) k/uL RBC 5.67 (4.30-5.90) m/uL Hgb 16.8 (13.0-17.5) gm/dL Hct 49.8 (39.0-53.0) % MCV 87.8 (80.0-100.0) fL MCH 29.6 (25.0-35.0) pg MCHC 33.7 (31.0-37.0) g/dL RDW 13.8 (11.5-15.5) % Plt Count 528 H (150-450) k/uL MPV 6.8 Neutrophils % 69 % Lymphocytes % 24 % Monocytes % 4 % Eosinophils % 1 % Basophils % 0 % Neutrophils # 6.9 (1.3-7.7) k/uL Lymphocytes # 2.4 (1.0-4.8) k/uL Monocytes # 0.4 (0-1.0) k/uL Eosinophils # 0.1 (0-0.7) k/uL Basophils # 0.0 (0-0.2) k/uL Sodium 139 (137-145) mmol/L Potassium 4.1 (3.5-5.1) mmol/L Chloride 100 (98-107) mmol/L Carbon Dioxide 26 (22-30) mmol/L Anion Gap 13 mmol/L BUN 12 (9-20) mg/dL Creatinine 0.74 (0.66-1.25) mg/dL Est GFR (CKD-EPI)AfAm >90 (>60 ml/min/1.73 sqM) Est GFR (CKD-EPI)NonAf >90 (>60 ml/min/1.73 sqM) Glucose 95 (74-99) mg/dL Plasma Lactic Acid Rad (0.7-2.0) mmol/L Calcium 10.4 H (8.4-10.2) mg/dL Total Bilirubin 0.6 (0.2-1.3) mg/dL AST 41 (17-59) U/L ALT 116 H (4-49) U/L Alkaline Phosphatase 126 (38-126) U/L Troponin I (0.000-0.034) ng/mL Total Protein 9.3 H (6.3-8.2) g/dL Albumin 4.8 (3.5-5.0) g/dL Amylase 75 (30-110) U/L Lipase 105 (23-300) U/L Urine Color Yellow Urine Appearance Clear (Clear) Urine pH 7.5 (5.0-8.0) Ur Specific Palmer 1.022 (1.001-1.035) Urine Protein Trace H (Negative) Urine Glucose (UA) Negative (Negative) Urine Ketones Negative (Negative) Urine Blood Moderate H (Negative) Urine Nitrite Negative (Negative) Urine Bilirubin Negative (Negative) Urine Urobilinogen 3.0 (<2.0) mg/dL Ur Leukocyte Esterase Moderate H (Negative) Urine RBC >182 H (0-5) /hpf Urine WBC 47 H (0-5) /hpf Urine Mucus Rare H (None) /hpf 05/18/21 05/18/21 Range/Units 17:53 17:53 WBC (3.8-10.6) k/uL RBC (4.30-5.90) m/uL Hgb (13.0-17.5) gm/dL Hct (39.0-53.0) % MCV (80.0-100.0) fL MCH (25.0-35.0) pg MCHC (31.0-37.0) g/dL RDW (11.5-15.5) % Plt Count (150-450) k/uL MPV Neutrophils % % Lymphocytes % % Monocytes % % Eosinophils % % Basophils % % Neutrophils # (1.3-7.7) k/uL Lymphocytes # (1.0-4.8) k/uL Monocytes # (0-1.0) k/uL Eosinophils # (0-0.7) k/uL Basophils # (0-0.2) k/uL Sodium (137-145) mmol/L Potassium (3.5-5.1) mmol/L Chloride (98-107) mmol/L Carbon Dioxide (22-30) mmol/L Anion Gap mmol/L BUN (9-20) mg/dL Creatinine (0.66-1.25) mg/dL Est GFR (CKD-EPI)AfAm (>60 ml/min/1.73 sqM) Est GFR (CKD-EPI)NonAf (>60 ml/min/1.73 sqM) Glucose (74-99) mg/dL Plasma Lactic Acid Rad 1.2 (0.7-2.0) mmol/L Calcium (8.4-10.2) mg/dL Total Bilirubin (0.2-1.3) mg/dL AST (17-59) U/L ALT (4-49) U/L Alkaline Phosphatase (38-126) U/L Troponin I <0.012 (0.000-0.034) ng/mL Total Protein (6.3-8.2) g/dL Albumin (3.5-5.0) g/dL Amylase (30-110) U/L Lipase (23-300) U/L Urine Color Urine Appearance (Clear) Urine pH (5.0-8.0) Ur Specific Palmer (1.001-1.035) Urine Protein (Negative) Urine Glucose (UA) (Negative) Urine Ketones (Negative) Urine Blood (Negative) Urine Nitrite (Negative) Urine Bilirubin (Negative) Urine Urobilinogen (<2.0) mg/dL Ur Leukocyte Esterase (Negative) Urine RBC (0-5) /hpf Urine WBC (0-5) /hpf Urine Mucus (None) /hpf Disposition Is patient prescribed a controlled substance at d/c from ED?: No Time of Disposition: 20:20 <Chele Albarran - Last Filed: 05/18/21 20:48> <Ammon Burns - Last Filed: 05/18/21 23:32> Clinical Impression: UTI (urinary tract infection), [place] catheter in place prior to arrival Disposition: Left Against Medical Advice Condition: Good Additional Instructions: Return to the emergency room with any worsening symptoms including fever, in creased pain, difficulty urinating. Follow-up with urology as recommended. Continue taking the antibiotics as previously prescribed for urinary tract infection. Referrals: Estrada Merrill [Primary Care Provider] - 1-2 days Shravan Armenta MD [STAFF PHYSICIAN] - 1-2 days
[2021-05-18 18:04] LABS: Basophils % (A) 0 %; Eosinophils # (A) 0.1 k/uL (0-0.7); Eosinophils % (A) 1 %; HCT 49.8 % (39.0-53.0); HGB 16.8 gm/dL (13.0-17.5); Lymphocytes # (A) 2.4 k/uL (1.0-4.8); Lymphocytes % (A) 24 %; MCH 29.6 pg (25.0-35.0); MCHC 33.7 g/dL (31.0-37.0); MCV 87.8 fL (80.0-100.0); Mean Platelet Volume 6.8; Monocytes # (A) 0.4 k/uL (0-1.0); Monocytes % (A) 4 %; Neutrophils # (A) 6.9 k/uL (1.3-7.7); Neutrophils % (A) 69 %; Platelet Count 528 k/uL (150-450); RBC 5.67 m/uL (4.30-5.90); RDW 13.8 % (11.5-15.5); WBC 9.9 k/uL (3.8-10.6)
[2021-05-18 18:15] LABS: ALT 116 U/L (4-49); AST 41 U/L (17-59); African American GFR (CKD) >90 (>60 ml/min/1.73 sqM); Albumin 4.8 g/dL (3.5-5.0); Alkaline Phosphatase 126 U/L (38-126); Amylase 75 U/L (30-110); Anion Gap 13 mmol/L; Blood Urea Nitrogen 12 mg/dL (9-20); Calcium 10.4 mg/dL (8.4-10.2); Carbon Dioxide 26 mmol/L (22-30); Chloride 100 mmol/L (98-107); Glucose 95 mg/dL (74-99); Lipase 105 U/L (23-300); Non-African American GFR(CKD) >90 (>60 ml/min/1.73 sqM); Potassium 4.1 mmol/L (3.5-5.1); Sodium 139 mmol/L (137-145); Total Bilirubin 0.6 mg/dL (0.2-1.3); Total Protein 9.3 g/dL (6.3-8.2)
--- NOTE | 2021-05-18 20:37 | US ---
EXAMINATION TYPE: US renals and bladder DATE OF EXAM: 05/18/2021 COMPARISON: NONE CLINICAL HISTORY: uti, back pain, hx of kidney stones. EXAM MEASUREMENTS: Right Kidney: 10.1 x 4.3 x 5.2 cm Left Kidney: 11.2 x 4.7 x 5.1 cm Right Kidney: No hydronephrosis or masses seen Left Kidney: No hydronephrosis or masses seen Bladder: Not distended There is no evidence for hydronephrosis at this point in time. No nephrolithiasis is seen. No johan s are identified. There is normal echogenicity and cortical thickness of the bilateral kidneys. Urinary bladder is nondistended. IMPRESSION: 1. Normal appearance of the bilateral kidneys. 2. Nondistention of the urinary bladder.
== END 2021-05-18 21:46 | disposition left against medical advice (07) ==
LOC: EC 14:25
DX: N39.0 Urinary tract infection, site not specified (principal); F17.200 Nicotine dependence, unspecified, uncomplicated; F12.90 Cannabis use, unspecified, uncomplicated; F11.90 Opioid use, unspecified, uncomplicated; Z79.899 Other long term (current) drug therapy
CPT/HCPCS: 36415; 80053; 82150; 83605; 83690; 84484; 85025; 81001; 87086; 76770; 99284; 96374; 96361 ×2; J1885

== ENCOUNTER → 2022-08-16 | Outpatient (CLI) | payer BC ==
--- NOTE | 2022-08-17 07:47 | MR ---
EXAMINATION TYPE: MR abdomen wo/w con DATE OF EXAM: 08/16/2022 9:36 AM INDICATION: Patient age:Male; 37 years old; Reason for study: R93.5 ABN FINDINGS ON DX IMAGING; Hepatitis C. Abnormal US, nonspecific hypoechoic areas in the region of the pancreas. COMPARISON: None TECHNIQUE: Multiplanar multi-sequence imaging was performed without contrast. Post contrast imaging was performed. IV Contrast: 6.5 cc Gadavist FINDINGS: LOWER CHEST: No gross irregularity. ABDOMEN Liver: Unremarkable. Gallbladder and Bile ducts: Unremarkable. Pancreas: The pancreatic parenchyma is uniform without abnormality. Mild motion artifact limits evalu ation the parenchyma no obvious mass or cystic structure identified. Note should be made that there i s no prior imaging available at this time of interpretation. Spleen: Unremarkable. Adrenal glands: Unremarkable. Kidneys: Unremarkable. Stomach and Bowel: Unremarkable as visualized. Peritoneum: No evidence of pneumoperitoneum, free fluid, or adenopathy. Vasculature: Unremarkable. No aortic aneurysm. Abdominal wall: Unremarkable. Musculoskeletal: The osseous structures appear intact. IMPRESSION: No evidence of abdominal mass or abnormality of the pancreas. An addendum can be made if the prior ul trasound images are made available for comparison.
== END | disposition home or self-care (01) ==
LOC: RADMRIMAIN 08:45
PROVIDERS: ATTEND Nurse Practitioner Family
DX: R93.5 Abnormal findings on diagnostic imaging of other abdominal regions, including retroperitoneum (principal); B19.20 Unspecified viral hepatitis C without hepatic coma
CPT/HCPCS: 74183; A9585